=== PATIENT | male | born 1980 | race African-American/Black ===

== ENCOUNTER 2018-12-10 12:50 | Emergency (ER) | payer OTHER, SELFPAY ==
[2018-12-10 12:58] VITALS: BP 168/98; PULSE 89; RESP 20; O2SAT 99
[2018-12-10 13:19] LABS: Add Manual Diff / Slide Review NO; Basophils Absolute Auto 0 /uL (0-100); Basophils Percent Auto 0.3 % (0-2); Eosinophils Absolute Auto 100 /uL (0-450); Eosinophils Percent Auto 1.3 % (2-4); Hematocrit 43.9 % (41-53); Hemoglobin 14.9 g/dL (13.5-17.5); Lymphocytes Absolute Auto 1700 /uL (1100-4500); Mean Corpuscular Hemoglobin 30.1 PG (26-34); Mean Corpuscular Volume 88.7 fL (80-100); Monocytes Absolute Auto 700 /uL (0-900); Monocytes Percent Auto 9.4 % (3-14); Neutrophils Absolute Auto 5200 /uL (1500-7000); Platelet Count 252 X10^3/uL (150-400); Red Blood Cell Count 4.95 X10^6/uL (4.5-5.9); Red Cell Distribution Width 14.1 % (11.6-14.8); White Blood Cell Count 7.8 X10^3/uL (4.5-11.0)
[2018-12-10] MEDS: SODIUM CHLORIDE 0.9% 1,000 ML 1000 ML IV ×2 (13:20→14:22)
[2018-12-10] MEDS: ONDANSETRON 4 MG/2 ML INJ IV (13:20)
[2018-12-10 13:29] LABS: Alanine Aminotransferase 59 IU/L (21-72); Albumin 4.6 g/dL (3.5-5.0); Albumin Globulin Ratio 1.3 (1.0-2.8); Alkaline Phosphatase 89 U/L (38-126); Aspartate Aminotransferase 42 IU/L (17-59); BUN Creatinine Ratio 8.8 (6-22); Bilirubin Total 0.9 mg/dL (0.2-1.3); Blood Urea Nitrogen 15 mg/dL (9-20); Calcium 9.2 mg/dL (8.4-10.2); Carbon Dioxide 25 mmol/L (22-32); Chloride 104 mmol/L (98-107); Estimated Glomerular Filt Rate 45.3 mL/min (>60); Globulin 3.6 g/dL (1.7-4.1); Glucose 93 mg/dL (70-100); HEMOLYSIS < 15 (0-50); Lipase 69 U/L (23-300); Potassium 4.3 mmol/L (3.4-5.1); Sodium 140 mmol/L (137-145); Total Protein 8.2 g/dL (6.3-8.2)
[2018-12-10 14:00] VITALS: BP 135/75; PULSE 75; RESP 14; O2SAT 99
[2018-12-10 16:06] LABS: Bacteria Urine None Seen
[2018-12-10 16:19] LABS: Culture Indicated Urine Cult Not Indicated; RBC Urine 0-1/HPF (0-5/HPF); WBC Urine 0-1/HPF (0-5/HPF)
[2018-12-10] MEDS: DICYCLOMINE 10 MG CAPSULE PO (16:29)
[2018-12-10 16:56] VITALS: BP 132/74; PULSE 69; RESP 16; O2SAT 99
--- NOTE | 2018-12-11 02:07 | ED.ABDPAIN ---
HPI - Abdominal Pain <[facility] - Last Filed: 12/11/18 02:22> General Chief Complaint: Abdominal Pain Stated Complaint: stomach issues,not eating Time Seen by Provider: 12/10/18 13:19 Source: patient Mode of arrival: ambulatory Limitations: no limitations History of Present Illness HPI narrative: This is a pleasant 38-year-old gentleman, past smoker, presents to ED with frequent diarrhea for last 4 days without nausea or vomiting. Patient thought he had food poisoning after eating omelette on Thursday and his mother had similar symptoms for just 1 day. He reports nonbloody watery stool for about every 2 hours with mid abdominal discomfort. He denies fever but had some chills. Patient denies chest pain, breathing difficulty but has lightheaded with ambulation. He has been hydrating with water and sports drinks at home. Patient tried out eating solid food, pizza, last night and had recurring diarrhea. Patient reports his stomach was making loud noises and was concerned if he has bowel obstructions. Patient has a history of gallstone and cholecystectomy. He denies urinary symptoms. He takes omeprazole daily. Related Data Home Medications Medication Instructions Recorded Confirmed omeprazole 20 mg PO DAILY 12/10/18 12/10/18 Previous Rx's Medication Instructions Recorded dicyclomine 20 mg PO BID #10 cap 12/10/18 Allergies Allergy/AdvReac Type Severity Reaction Status Date / Time No Known Drug Allergies Allergy Verified 12/10/18 12:59 Review of Systems <[facility] - Last Filed: 12/11/18 02:22> Review of Systems General: See HPI HEENT: Denies sinus pain, ear pain, sore throat, difficulty swallowing, dizziness. Respiratory: Denies dyspnea, cough, wheezing, hemoptysis, sputum. Cardiovascular: Denies chest pain, palpitations, orthopnea, edema. Reports lightheadedness with ambulation. Gastrointestinal: See HPI : Denies dysuria, frequency, incontinence, hematuria, urinary retention. Musculoskeletal: Denies weakness, joint pain or bony pain. Skin: Denies rash, skin lesions, or other. Neurologic: Denies weakness, headache, numbness, change in speech, confusion, seizures, incoordination. Psychiatric: No concerning psychosocial issues. 12-point review of systems is negative except for those stated above. PFSH <PRASHANTH Herrera - Last Filed: 12/11/18 02:22> Surgical History (Updated 12/11/18 @ 02:12 by PRASHANTH Herrear) History of cholecystectomy (Chronic) Social History Smoking Status: Never smoker Social History Smoking Status: Never smoker Exam <PRASHANTH Herrera - Last Filed: 12/11/18 02:22> Narrative Exam Narrative: GEN: Alert, oriented x 3, well appearing and nourished, and in no acute distress. Head: Normal cephalic, atraumatic. No scalp or temporal tenderness, palpable mass or rash. EYES: Pupils are equal, round, and reactive to light and accommodation. Extraocular muscles are intact bilaterally. There is no subconjunctival hemorrhage, exudate and sclera non-icteric. ENT: Nose without bleeding, purulent discharge. Mucous membrane moist, no mucosal lesion. Throat without erythema, tonsillar hypertrophy or exudate. Uvula in midline, airway patent. Neck: Trachea in midline. No JVD, non-tender without lymphadenopathy. No masses or thyroid megaly. Supple, non-tender and no meningeal signs. CARDIAC: Normal regular rate and rhythm without murmurs, gallops, or rubs. No chest wall tenderness. No peripheral edema, cyanosis or pallor. Capillary refill is less than 2 seconds. RESPIRATORY: Lungs are cleat to auscultate bilaterally. No cough, wheezes, rales, or rhonchi. No stridor, respiratory distress, increase work of breathing, or accessary muscle used. ABD: Mild tenderness to palpate in epigastric region. Abdomen soft and non-distended. No guarding or rebound tenderness to palpate. Bowel sounds are normal in all 4 quadrants. There is no palpable masses or organomegaly. EXT: Full painless ROM of all extremities with no loss of sensation, strength, effusion or edema. SKIN: Warm, dry, normal color for patient. No erythema, lesions or rash over visible areas. BACK: Nontender without deformity or crepitance. No flank tenderness. NEUROLOGICAL: Alert and oriented to place, time and person. Sensation and motor function intact bilaterally. No facial droops, dysphasia. PSYCHIATRIC: Good judgement and reason, without hallucinations, abnormal affect or abnormal behaviors during the examination. Patient is not suicidal. Initial Vital Signs Initial Vital Signs: Vital Signs Pulse Rate 89 12/10/18 12:58 Respiratory Rate 20 12/10/18 12:58 Blood Pressure 168/98 H 12/10/18 12:58 Pulse Oximetry 99 12/10/18 12:58 <Karthik Madera DO - Last Filed: 12/11/18 07:35> Initial Vital Signs Initial Vital Signs: Vital Signs Pulse Rate 89 12/10/18 12:58 Respiratory Rate 20 12/10/18 12:58 Blood Pressure 168/98 H 12/10/18 12:58 Pulse Oximetry 99 12/10/18 12:58 Course <PRASHANTH Herrera - Last Filed: 12/11/18 02:22> Orders Ordered: Discontinued Medications Dicyclomine HCl (Bentyl) 10 mg PO NOW ONE Stop: 12/10/18 16:02 Last Admin: 12/10/18 16:29 Dose: 10 mg Sodium Chloride (Normal Saline 0.9%) 1,000 mls @ 1,000 mls/hr IV BOLUS ONE Stop: 12/10/18 14:04 Last Infusion: 12/10/18 14:22 Dose: 0 mls/hr Admin: 12/10/18 13:20 Dose: 1,000 mls/hr Sodium Chloride (Normal Saline 0.9%) 1,000 mls @ 1,000 mls/hr IV BOLUS ONE Stop: 12/10/18 15:14 Last Infusion: 12/10/18 15:41 Dose: 0 mls/hr Admin: 12/10/18 14:22 Dose: 1,000 mls/hr Ondansetron HCl (Zofran) 4 mg IV NOW ONE Stop: 12/10/18 13:06 Last Admin: 12/10/18 13:20 Dose: 4 mg <Karthik Madera DO - Last Filed: 12/11/18 07:35> Orders Ordered: Discontinued Medications Dicyclomine HCl (Bentyl) 10 mg PO NOW ONE Stop: 12/10/18 16:02 Last Admin: 12/10/18 16:29 Dose: 10 mg Sodium Chloride (Normal Saline 0.9%) 1,000 mls @ 1,000 mls/hr IV BOLUS ONE Stop: 12/10/18 14:04 Last Infusion: 12/10/18 14:22 Dose: 0 mls/hr Admin: 12/10/18 13:20 Dose: 1,000 mls/hr Sodium Chloride (Normal Saline 0.9%) 1,000 mls @ 1,000 mls/hr IV BOLUS ONE Stop: 12/10/18 15:14 Last Infusion: 12/10/18 15:41 Dose: 0 mls/hr Admin: 12/10/18 14:22 Dose: 1,000 mls/hr Ondansetron HCl (Zofran) 4 mg IV NOW ONE Stop: 12/10/18 13:06 Last Admin: 12/10/18 13:20 Dose: 4 mg MDM - Abdominal Pain <Rafi PRASHANTH Allen - Last Filed: 12/11/18 02:22> Differential Diagnosis Differential diagnosis: Likely abdominal pain, gastroenteritis and pancreatitis Medical Records Attestation: I reviewed the patient's medical records. Lab Data Attestation: I reviewed the patient's lab results. Result diagrams: 12/10/18 13:10 12/10/18 13:10 Lab Results 12/10/18 12/10/18 12/10/18 Range/Units 13:10 13:10 16:00 WBC 7.8 (4.5-11.0) X10^3/uL RBC 4.95 (4.5-5.9) X10^6/uL Hgb 14.9 (13.5-17.5) g/dL Hct 43.9 (41-53) % MCV 88.7 (80-100) fL MCH 30.1 (26-34) PG MCHC 34.0 (30-36) % RDW 14.1 (11.6-14.8) % Plt Count 252 (150-400) X10^3/uL Neut % (Auto) 67.0 (50-75) % Lymph % (Auto) 22.0 L (25-40) % [place] % (Auto) 9.4 (3-14) % Eos % (Auto) 1.3 L (2-4) % Baso % (Auto) 0.3 (0-2) % Neut # (Auto) 5200 (4745-7128) /uL Lymph # (Auto) 1700 (3979-8384) /uL [place] # (Auto) 700 (0-900) /uL Eos # (Auto) 100 (0-450) /uL Baso # (Auto) 0 (0-100) /uL Sodium 140 (137-145) mmol/L Potassium 4.3 (3.4-5.1) mmol/L Chloride 104 (98-107) mmol/L Carbon Dioxide 25 (22-32) mmol/L BUN 15 (9-20) mg/dL Creatinine 1.70 H (0.66-1.25) mg/dL Estimated GFR 45.3 L (>60) mL/min BUN/Creatinine Ratio 8.8 (6-22) Glucose 93 (70-100) mg/dL Calcium 9.2 (8.4-10.2) mg/dL Total Bilirubin 0.9 (0.2-1.3) mg/dL AST 42 (17-59) IU/L ALT 59 (21-72) IU/L Alkaline Phosphatase 89 (38-126) U/L Total Protein 8.2 (6.3-8.2) g/dL Albumin 4.6 (3.5-5.0) g/dL Globulin 3.6 (1.7-4.1) g/dL Albumin/Globulin Ratio 1.3 (1.0-2.8) Lipase 69 (23-300) U/L Urine RBC 0-1/hpf (0-5/HPF) Urine WBC 0-1/hpf (0-5/HPF) Urine Bacteria None seen (None) Ur Culture Indicated? Cult not indicated Point of care testing: Urine Dip Bedside Urine Glucose Negative Bedside Urine Bilirubin ++ 2 Bedside Urine Ketone - Negative Urine Specific Saxis 1.030 Bedside Urine Occult Blood - Negative Bedside Urine pH 6.0 Bedside Urine Protein +/- 15 Bedside Urine Urobilinogen +/- 1mg Bedside Urine Nitrite - Negative Bedside Urine Leukocytes - Negative Esterase MDM Narrative Medical decision making narrative: This is a pleasant 38-year-old gentleman with nonbloody, watery diarrhea for 4 days without nausea vomiting, or fever. He reports some chills with this. He denies any blood in his stool. He reports feeling dehydrated and reports lightheadedness with ambulation. Patient's blood test was unremarkable except elevated creatinine and decreased GFR which could be from dehydration. Patient's urine test does not indicate infection. Patient was hydrated with 2 liters of IV fluid of normal saline. Patient felt improved with IV hydration. Patient also medicated with Bentyl prior DC to home and provided prescription for home use. Return precautions were discussed with patient. Patient was also instructed to take [id number] Imodium if he choose to. No further questions were expressed and patient a agree with treatment plan. <Karthik Madera, DO - Last Filed: 12/11/18 07:35> Lab Data Lab Results 12/10/18 12/10/18 12/10/18 Range/Units 13:10 13:10 16:00 WBC 7.8 (4.5-11.0) X10^3/uL RBC 4.95 (4.5-5.9) X10^6/uL Hgb 14.9 (13.5-17.5) g/dL Hct 43.9 (41-53) % MCV 88.7 (80-100) fL MCH 30.1 (26-34) PG MCHC 34.0 (30-36) % RDW 14.1 (11.6-14.8) % Plt Count 252 (150-400) X10^3/uL Neut % (Auto) 67.0 (50-75) % Lymph % (Auto) 22.0 L (25-40) % [place] % (Auto) 9.4 (3-14) % Eos % (Auto) 1.3 L (2-4) % Baso % (Auto) 0.3 (0-2) % Neut # (Auto) 5200 (7001-8296) /uL Lymph # (Auto) 1700 (1098-6814) /uL [place] # (Auto) 700 (0-900) /uL Eos # (Auto) 100 (0-450) /uL Baso # (Auto) 0 (0-100) /uL Sodium 140 (137-145) mmol/L Potassium 4.3 (3.4-5.1) mmol/L Chloride 104 (98-107) mmol/L Carbon Dioxide 25 (22-32) mmol/L BUN 15 (9-20) mg/dL Creatinine 1.70 H (0.66-1.25) mg/dL Estimated GFR 45.3 L (>60) mL/min BUN/Creatinine Ratio 8.8 (6-22) Glucose 93 (70-100) mg/dL Calcium 9.2 (8.4-10.2) mg/dL Total Bilirubin 0.9 (0.2-1.3) mg/dL AST 42 (17-59) IU/L ALT 59 (21-72) IU/L Alkaline Phosphatase 89 (38-126) U/L Total Protein 8.2 (6.3-8.2) g/dL Albumin 4.6 (3.5-5.0) g/dL Globulin 3.6 (1.7-4.1) g/dL Albumin/Globulin Ratio 1.3 (1.0-2.8) Lipase 69 (23-300) U/L Urine RBC 0-1/hpf (0-5/HPF) Urine WBC 0-1/hpf (0-5/HPF) Urine Bacteria None seen (None) Ur Culture Indicated? Cult not indicated Point of care testing: Urine Dip Bedside Urine Glucose Negative Bedside Urine Bilirubin ++ 2 Bedside Urine Ketone - Negative Urine Specific Saxis 1.030 Bedside Urine Occult Blood - Negative Bedside Urine pH 6.0 Bedside Urine Protein +/- 15 Bedside Urine Urobilinogen +/- 1mg Bedside Urine Nitrite - Negative Bedside Urine Leukocytes - Negative Esterase Discharge Plan Departure Patient Disposition: Home Clinical Impression: Diarrhea Qualifiers: Diarrhea type: unspecified type Qualified Code(s): R19.7 - Diarrhea, unspecified Discharge Date/Time: 12/10/18 16:56 Interventions: ED Discharge Assessment Last Done: 12/10/18 16:56 Activity Restrictions/Additional Instructions: You have been diagnosed with [diarrhea and abdominal cramping pain. I have very low suspicion on bowel blockage since you had multiple diarrhea symptoms for last few days. There is no indication for infection for blood test. However, you are dehydrated her blood test. You're GFR and creatinine elevated. Please follow-up with your primary care physician next week to follow up on this. Please hydrate herself well with oral liquid in the meantime to replace her loss through diarrhea. ]. What to do: *Take your medications as directed. You're going home with Susanyl for stomach cramping pain. He could also take [id number] Imodium for diarrhea as needed. *Follow up with your primary care provider in 2-3 days, call for an appointment on Thursday morning. Let them know you were seen in the ED and that we asked you to be seen in follow up. *Return to ED if you have any new, worsening, or concerning symptoms, such as [fever, severe pain, unable to tolerate fluids, chest pain, breathing difficulty, dizziness, blood in her stool or any acute concerns]. Prescriptions: New dicyclomine 10 mg capsule 20 mg PO BID Qty: 10 RF: 0 No Action omeprazole 20 mg Capsule,Delayed Release(Dr/Ec) 20 mg PO DAILY RF: 0 Referrals: Dimitrios Ziegler MD [Primary Care Provider] - <Karthik Madera DO - Last Filed: 12/11/18 07:35> Cosign ED Attending Benitaature Attestation: I was available for consultation during this patient's emergency department encounter
--- NOTE | 2018-12-11 02:11 | ED_ITS ---
HPI - Abdominal Pain <[facility] - Last Filed: 12/11/18 02:22> General Chief Complaint: Abdominal Pain Stated Complaint: stomach issues,not eating Time Seen by Provider: 12/10/18 13:19 Source: patient Mode of arrival: ambulatory Limitations: no limitations History of Present Illness HPI narrative: This is a pleasant 38-year-old gentleman, past smoker, presents to ED with frequent diarrhea for last 4 days without nausea or vomiting. Patient thought he had food poisoning after eating omelette on Thursday and his mother had similar symptoms for just 1 day. He reports nonbloody watery stool for about every 2 hours with mid abdominal discomfort. He denies fever but had some chills. Patient denies chest pain, breathing difficulty but has lightheaded with ambulation. He has been hydrating with water and sports drinks at home. Patient tried out eating solid food, pizza, last night and had recurring diarrhea. Patient reports his stomach was making loud noises and was concerned if he has bowel obstructions. Patient has a history of gallstone and cholecystectomy. He denies urinary symptoms. He takes omeprazole daily. Related Data Home Medications Medication Instructions Recorded Confirmed omeprazole 20 mg PO DAILY 12/10/18 12/10/18 Previous Rx's Medication Instructions Recorded dicyclomine 20 mg PO BID #10 cap 12/10/18 Allergies Allergy/AdvReac Type Severity Reaction Status Date / Time No Known Drug Allergies Allergy Verified 12/10/18 12:59 Review of Systems <[facility] - Last Filed: 12/11/18 02:22> Review of Systems General: See HPI HEENT: Denies sinus pain, ear pain, sore throat, difficulty swallowing, di zziness. Respiratory: Denies dyspnea, cough, wheezing, hemoptysis, sputum. Cardiovascular: Denies chest pain, palpitations, orthopnea, edema. Reports lightheadedness with ambulation. Gastrointestinal: See HPI : Denies dysuria, frequency, incontinence, hematuria, urinary retention. Musculoskeletal: Denies weakness, joint pain or bony pain. Skin: Denies rash, skin lesions, or other. Neurologic: Denies weakness, headache, numbness, change in speech, confusion, seizures, incoordination. Psychiatric: No concerning psychosocial issues. 12-point review of systems is negative except for those stated above. PFSH <PRASHANTH Herrera - Last Filed: 12/11/18 02:22> Surgical History (Updated 12/11/18 @ 02:12 by PRASHANTH Herrera) History of cholecystectomy (Chronic) Social History Smoking Status: Never smoker Social History Smoking Status: Never smoker Exam <PRASHANTH Herrera - Last Filed: 12/11/18 02:22> Narrative Exam Narrative: GEN: Alert, oriented x 3, well appearing and nourished, and in no acute distress. Head: Normal cephalic, atraumatic. No scalp or temporal tenderness, palpable mass or rash. EYES: Pupils are equal, round, and reactive to light and accommodation. Extraocular muscles are intact bilaterally. There is no subconjunctival hemorrhage, exudate and sclera non-icteric. ENT: Nose without bleeding, purulent discharge. Mucous membrane moist, no mucosal lesion. Throat without erythema, tonsillar hypertrophy or exudate. Uvula in midline, airway patent. Neck: Trachea in midline. No JVD, non-tender without lymphadenopathy. No masses or thyroid megaly. Supple, non-tender and no meningeal signs. CARDIAC: Normal regular rate and rhythm without murmurs, gallops, or rubs. No chest wall tenderness. No peripheral edema, cyanosis or pallor. Capillary refill is less than 2 seconds. RESPIRATORY: Lungs are cleat to auscultate bilaterally. No cough, wheezes, rale s, or rhonchi. No stridor, respiratory distress, increase work of breathing, or accessary muscle used. ABD: Mild tenderness to palpate in epigastric region. Abdomen soft and non- distended. No guarding or rebound tenderness to palpate. Bowel sounds are normal in all 4 quadrants. There is no palpable masses or organomegaly. EXT: Full painless ROM of all extremities with no loss of sensation, strength, effusion or edema. SKIN: Warm, dry, normal color for patient. No erythema, lesions or rash over visible areas. BACK: Nontender without deformity or crepitance. No flank tenderness. NEUROLOGICAL: Alert and oriented to place, time and person. Sensation and motor function intact bilaterally. No facial droops, dysphasia. PSYCHIATRIC: Good judgement and reason, without hallucinations, abnormal affect or abnormal behaviors during the examination. Patient is not suicidal. Initial Vital Signs Initial Vital Signs: Vital Signs Pulse Rate 89 12/10/18 12:58 Respiratory Rate 20 12/10/18 12:58 Blood Pressure 168/98 H 12/10/18 12:58 Pulse Oximetry 99 12/10/18 12:58 <DO Tess Lamar Last Filed: 12/11/18 07:35> Initial Vital Signs Initial Vital Signs: Vital Signs Pulse Rate 89 12/10/18 12:58 Respiratory Rate 20 12/10/18 12:58 Blood Pressure 168/98 H 12/10/18 12:58 Pulse Oximetry 99 12/10/18 12:58 Course <PRASHANTH Herrera - Last Filed: 12/11/18 02:22> Orders Ordered: Discontinued Medications Dicyclomine HCl (Bentyl) 10 mg PO NOW ONE Stop: 12/10/18 16:02 Last Admin: 12/10/18 16:29 Dose: 10 mg Sodium Chloride (Normal Saline 0.9%) 1,000 mls @ 1,000 mls/hr IV BOLUS ONE Stop: 12/10/18 14:04 Last Infusion: 12/10/18 14:22 Dose: 0 mls/hr Admin: 12/10/18 13:20 Dose: 1,000 mls/hr Sodium Chloride (Normal Saline 0.9%) 1,000 mls @ 1,000 mls/hr IV BOLUS ONE Stop: 12/10/18 15:14 Last Infusion: 12/10/18 15:41 Dose: 0 mls/hr Admin: 12/10/18 14:22 Dose: 1,000 mls/hr Ondansetron HCl (Zofran) 4 mg IV NOW ONE Stop: 12/10/18 13:06 Last Admin: 12/10/18 13:20 Dose: 4 mg <DO Tess Lamar Last Filed: 12/11/18 07:35> Orders Ordered: Discontinued Medications Dicyclomine HCl (Bentyl) 10 mg PO NOW ONE Stop: 12/10/18 16:02 Last Admin: 08/16/19 16:29 Dose: 10 mg Sodium Chloride (Normal Saline 0.9%) 1,000 mls @ 1,000 mls/hr IV BOLUS ONE Stop: 12/10/18 14:04 Last Infusion: 12/10/18 14:22 Dose: 0 mls/hr Admin: 12/10/18 13:20 Dose: 1,000 mls/hr Sodium Chloride (Normal Saline 0.9%) 1,000 mls @ 1,000 mls/hr IV BOLUS ONE Stop: 12/10/18 15:14 Last Infusion: 12/10/18 15:41 Dose: 0 mls/hr Admin: 12/10/18 14:22 Dose: 1,000 mls/hr Ondansetron HCl (Zofran) 4 mg IV NOW ONE Stop: 12/10/18 13:06 Last Admin: 12/10/18 13:20 Dose: 4 mg MDM - Abdominal Pain <Rafi PRASHNATH Allen - Last Filed: 12/11/18 02:22> Differential Diagnosis Differential diagnosis: Likely abdominal pain, gastroenteritis and pancreatitis Medical Records Attestation: I reviewed the patient's medical records. Lab Data Attestation: I reviewed the patient's lab results. Result diagrams: 12/10/18 13:10 12/10/18 13:10 Lab Results 12/10/18 12/10/18 12/10/18 Range/Units 13:10 13:10 16:00 WBC 7.8 (4.5-11.0) X10^3/uL RBC 4.95 (4.5-5.9) X10^6/uL Hgb 14.9 (13.5-17.5) g/dL Hct 43.9 (41-53) % MCV 88.7 (80-100) fL MCH 30.1 (26-34) PG MCHC 34.0 (30-36) % RDW 14.1 (11.6-14.8) % Plt Count 252 (150-400) X10^3/uL Neut % (Auto) 67.0 (50-75) % Lymph % (Auto) 22.0 L (25-40) % [place] % (Auto) 9.4 (3-14) % Eos % (Auto) 1.3 L (2-4) % Baso % (Auto) 0.3 (0-2) % Neut # (Auto) 5200 (9946-9915) /uL Lymph # (Auto) 1700 (5174-8995) /uL [place] # (Auto) 700 (0-900) /uL Eos # (Auto) 100 (0-450) /uL Baso # (Auto) 0 (0-100) /uL Sodium 140 (137-145) mmol/L Potassium 4.3 (3.4-5.1) mmol/L Chloride 104 (98-107) mmol/L Carbon Dioxide 25 (22-32) mmol/L BUN 15 (9-20) mg/dL Creatinine 1.70 H (0.66-1.25) mg/dL Estimated GFR 45.3 L (>60) mL/min BUN/Creatinine Ratio 8.8 (6-22) Glucose 93 (70-100) mg/dL Calcium 9.2 (8.4-10.2) mg/dL Total Bilirubin 0.9 (0.2-1.3) mg/dL AST 42 (17-59) IU/L ALT 59 (21-72) IU/L Alkaline Phosphatase 89 (38-126) U/L Total Protein 8.2 (6.3-8.2) g/dL Albumin 4.6 (3.5-5.0) g/dL Globulin 3.6 (1.7-4.1) g/dL Albumin/Globulin Ratio 1.3 (1.0-2.8) Lipase 69 (23-300) U/L Urine RBC 0-1/hpf (0-5/HPF) Urine WBC 0-1/hpf (0-5/HPF) Urine Bacteria None seen (None) Ur Culture Indicated? Cult not indicated Point of care testing: Urine Dip Bedside Urine Glucose Negative Bedside Urine Bilirubin ++ 2 Bedside Urine Ketone - Negative Urine Specific [place] 1.030 Bedside Urine Occult Blood - Negative Bedside Urine pH 6.0 Bedside Urine Protein +/- 15 Bedside Urine Urobilinogen +/- 1mg Bedside Urine Nitrite - Negative Bedside Urine Leukocytes - Negative Esterase MDM Narrative Medical decision making narrative: This is a pleasant 38-year-old gentleman with nonbloody, watery diarrhea for 4 days without nausea vomiting, or fever. He reports some chills with this. He denies any blood in his stool. He reports feeling dehydrated and reports lightheadedness with ambulation. Patient's blood test was unremarkable except elevated creatinine and decreased GFR which could be from dehydration. Patient's urine test does not indicate infection. Patient was hydrated with 2 liters of IV fluid of normal saline. Patient felt improved with IV hydration. Patient also medicated with Bentyl prior DC to home and provided prescription for home use. Return precautions were discussed with patient. Patient was also instructed to take [id number] Imodium if he cho ose to. No further questions were expressed and patient a agree with treatment plan. <Karthik Madera, DO - Last Filed: 12/11/18 07:35> Lab Data Lab Results 12/10/18 12/10/18 12/10/18 Range/Units 13:10 13:10 16:00 WBC 7.8 (4.5-11.0) X10^3/uL RBC 4.95 (4.5-5.9) X10^6/uL Hgb 14.9 (13.5-17.5) g/dL Hct 43.9 (41-53) % MCV 88.7 (80-100) fL MCH 30.1 (26-34) PG MCHC 34.0 (30-36) % RDW 14.1 (11.6-14.8) % Plt Count 252 (150-400) X10^3/uL Neut % (Auto) 67.0 (50-75) % Lymph % (Auto) 22.0 L (25-40) % [place] % (Auto) 9.4 (3-14) % Eos % (Auto) 1.3 L (2-4) % Baso % (Auto) 0.3 (0-2) % Neut # (Auto) 5200 (7987-4217) /uL Lymph # (Auto) 1700 (2737-1599) /uL [place] # (Auto) 700 (0-900) /uL Eos # (Auto) 100 (0-450) /uL Baso # (Auto) 0 (0-100) /uL Sodium 140 (137-145) mmol/L Potassium 4.3 (3.4-5.1) mmol/L Chloride 104 (98-107) mmol/L Carbon Dioxide 25 (22-32) mmol/L BUN 15 (9-20) mg/dL Creatinine 1.70 H (0.66-1.25) mg/dL Estimated GFR 45.3 L (>60) mL/min BUN/Creatinine Ratio 8.8 (6-22) Glucose 93 (70-100) mg/dL Calcium 9.2 (8.4-10.2) mg/dL Total Bilirubin 0.9 (0.2-1.3) mg/dL AST 42 (17-59) IU/L ALT 59 (21-72) IU/L Alkaline Phosphatase 89 (38-126) U/L Total Protein 8.2 (6.3-8.2) g/dL Albumin 4.6 (3.5-5.0) g/dL Globulin 3.6 (1.7-4.1) g/dL Albumin/Globulin Ratio 1.3 (1.0-2.8) Lipase 69 (23-300) U/L Urine RBC 0-1/hpf (0-5/HPF) Urine WBC 0-1/hpf (0-5/HPF) Urine Bacteria None seen (None) Ur Culture Indicated? Cult not indicated Point of care testing: Urine Dip Bedside Urine Glucose Negative Bedside Urine Bilirubin ++ 2 Bedside Urine Ketone - Negative Urine Specific [place] 1.030 Bedside Urine Occult Blood - Negative Bedside Urine pH 6.0 Bedside Urine Protein +/- 15 Bedside Urine Urobilinogen +/- 1mg Bedside Urine Nitrite - Negative Bedside Urine Leukocytes - Negative Esterase Discharge Plan Departure Patient Disposition: Home Clinical Impression: Diarrhea Qualifiers: Diarrhea type: unspecified type Qualified Code(s): R19.7 - Diarrhea, unspecified Discharge Date/Time: 12/10/18 16:56 Interventions: ED Discharge Assessment Last Done: 12/10/18 16:56 Activity Restrictions/Additional Instructions: You have been diagnosed with [diarrhea and abdominal cramping pain. I have very low suspicion on bowel blockage since you had multiple diarrhea symptoms for last few days. There is no indication for infection for blood test. However, you are dehydrated her blood test. You're GFR and creatinine elevated. Please follow-up with your primary care physician next week to follow up on this. Please hydrate herself well with oral liquid in the meantime to replace her loss through diarrhea. ]. What to do: *Take your medications as directed. You're going home with Bernadette for stomach cramping pain. He could also take [id number] Imodium for diarrhea as needed. *Follow up with your primary care provider in 2-3 days, call for an appointment on Thursday morning. Let them know you were seen in the ED and that we asked you to be seen in follow up. *Return to ED if you have any new, worsening, or concerning symptoms, such as [fever, severe pain, unable to tolerate fluids, chest pain, breathing difficulty, dizziness, blood in her stool or any acute concerns]. Prescriptions: New dicyclomine 10 mg capsule 20 mg PO BID Qty: 10 RF: 0 No Action omeprazole 20 mg Capsule,Delayed Release(Dr/Ec) 20 mg PO DAILY RF: 0 Referrals: Dimitrios Ziegler MD [Primary Care Provider] - <Karthik Madera DO - Last Filed: 12/11/18 07:35> Cosign ED Attending Benitaature Attestation: I was available for consultation during this patient's emergency department encounter
== END 2018-12-10 16:56 | disposition home or self-care (01) ==
PROVIDERS: Emergency Medicine; Emergency Provider Nurse Practitioner Family; Family Provider Family Medicine; PCP Family Medicine
DX: R19.7 Diarrhea, unspecified (principal)
CPT/HCPCS: 36591; 80053; 81003; 81015; 83690; 85025; 96361; 96374; 99283; 99284; J2405

== ENCOUNTER → 2018-12-15 11:48 | Outpatient (CLI) | payer OTHER, SELFPAY ==
[2018-12-15 13:40] LABS: BUN Creatinine Ratio 7.5 (6-22); Blood Urea Nitrogen 12 mg/dL (9-20); Calcium 9.3 mg/dL (8.4-10.2); Carbon Dioxide 29 mmol/L (22-32); Chloride 103 mmol/L (98-107); Estimated Glomerular Filt Rate 48.6 mL/min (>60); Glucose 89 mg/dL (70-100); HEMOLYSIS < 15 (0-50); Potassium 4.6 mmol/L (3.4-5.1); Sodium 142 mmol/L (137-145)
== END ==
PROVIDERS: Family Provider Family Medicine; PCP Family Medicine; Visit Provider Hospitalist
DX: R19.7 Diarrhea, unspecified (principal)
CPT/HCPCS: 36415; 80048

== ENCOUNTER → 2018-12-20 10:57 | Outpatient (CLI) | payer OTHER, SELFPAY ==
[2018-12-20 12:14] LABS: Appearance Urine UA CLEAR; Bilirubin Urine UA NEGATIVE (NEGATIVE); Color Urine UA YELLOW; Glucose Urine UA NEGATIVE (Negative); Ketones Urine UA NEGATIVE (NEGATIVE); Leukocyte Esterase Urine UA NEGATIVE (NEGATIVE); Nitrite Urine UA NEGATIVE (Negative); Occult Blood Urine UA NEGATIVE (Negative); Protein Urine UA NEGATIVE (Negative); Urobilinogen Urine UA 0.2 E.U./dL (0.2); pH Urine UA 5.5 (4.5-8.0)
[2018-12-20 12:23] LABS: Blood Urea Nitrogen 14 mg/dL (9-20); Calcium 9.6 mg/dL (8.4-10.2); Carbon Dioxide 31 mmol/L (22-32); Chloride 102 mmol/L (98-107); Estimated Glomerular Filt Rate 56.7 mL/min (>60); Glucose 102 mg/dL (70-100); HEMOLYSIS < 15 (0-50); Potassium 4.7 mmol/L (3.4-5.1); Sodium 140 mmol/L (137-145)
== END ==
PROVIDERS: PCP Family Medicine; Visit Provider Hospitalist
DX: K52.9 Noninfective gastroenteritis and colitis, unspecified (principal); R79.89 Other specified abnormal findings of blood chemistry
CPT/HCPCS: 36415; 80048; 81003

== ENCOUNTER → 2018-12-24 14:01 | Outpatient (CLI) | payer OTHER, SELFPAY ==
--- NOTE | 2018-12-24 14:03 | DI.US.S_ITS ---
PROCEDURE: US RENAL COMPLETE INDICATIONS: ELEVATED CREATININE TECHNIQUE: Real-time scanning was performed of the kidneys and bladder, with image documentation. COMPARISON: [facility], CT, ABDOMEN/PELVIS WITH CONTRAST, 03/13/2016, 14:20. [facility], US, ABDOMEN COMPLETE, 11/29/2013, 13:37. FINDINGS: Kidneys: Kidneys are normal in size. Right kidney measures 11.4 cm long; left kidney measures 10.6 cm long. Right renal cortical thickness is 1.8 cm; left renal cortical thickness is 1.9 cm. Renal cortical echotexture is normal. No hydronephrosis or nephrolithiasis. No suspicious solid mass lesions. Bladder: Pre-void bladder volume is 232 mL. Post-void residual is 32 mL. Pre-void images demonstrate no intraluminal masses or stones. On pre-void images, bilateral ureteral jets are noted with color Doppler interrogation. (Of note, ureteral jets may not be detectable in up to 25% of cases due to insufficient differences in specific gravity between ureteral and bladder urine). Miscellaneous: No free pelvic fluid. IMPRESSION: Normal sonographic appearance of the kidneys. Dictated by: Arley MARTINES Interpreted: Susie Pop MD on 12/24/2018 at 15:01 Approved by: Susie Pop M.D. on 12/24/2018 at 15:12
== END ==
PROVIDERS: PCP Family Medicine; Visit Provider Hospitalist
DX: R79.89 Other specified abnormal findings of blood chemistry (principal); R94.4 Abnormal results of kidney function studies
CPT/HCPCS: 76770

== ENCOUNTER → 2019-11-03 15:21 | Outpatient (CLI) | payer OTHER, SELFPAY ==
--- NOTE | 2019-11-03 15:25 | DI.RAD.S_ITS ---
PROCEDURE: XR CHEST 2V INDICATIONS: Chest pain TECHNIQUE: 2 views of the chest were acquired. COMPARISON: None. FINDINGS: Surgical changes and devices: None. Lungs and pleura: Lungs are clear. No pleural effusions or pneumothorax. Mediastinum: Mediastinal contours are normal. Heart size is normal. Bones and chest wall: No suspicious bony abnormalities. Soft tissues appear unremarkable. IMPRESSION: No acute cardiopulmonary process demonstrated radiographically. Dictated by: Seng Soliz M.D. on 11/03/2019 at 16:03 Approved by: Seng Soliz M.D. on 11/03/2019 at 16:04
[2019-11-03 16:14] LABS: Add Manual Diff / Slide Review NO; Basophils Absolute Auto 0 /uL (0-100); Basophils Percent Auto 0.3 % (0-2); Eosinophils Absolute Auto 100 /uL (0-450); Eosinophils Percent Auto 1.4 % (2-4); Hematocrit 41.8 % (41-53); Hemoglobin 14.1 g/dL (13.5-17.5); Lymphocytes Absolute Auto 2800 /uL (1100-4500); Lymphocytes Percent Auto 37.6 % (25-40); Mean Corpuscular HGB Conc 33.6 % (30-36); Mean Corpuscular Hemoglobin 30.2 PG (26-34); Mean Corpuscular Volume 89.8 fL (80-100); Monocytes Absolute Auto 500 /uL (0-900); Monocytes Percent Auto 6.2 % (3-14); Neutrophils Absolute Auto 4100 /uL (1500-7000); Neutrophils Percent Auto 54.5 % (50-75); Platelet Count 254 X10^3/uL (150-400); Red Blood Cell Count 4.66 X10^6/uL (4.5-5.9); Red Cell Distribution Width 13.7 % (11.6-14.8); White Blood Cell Count 7.5 X10^3/uL (4.5-11.0)
[2019-11-03 16:42] LABS: Alanine Aminotransferase 56 IU/L (<50); Albumin 4.4 g/dL (3.5-5.0); Albumin Globulin Ratio 1.3 (1.0-2.8); Alkaline Phosphatase 81 U/L (38-126); Amylase 93 U/L (30-110); Aspartate Aminotransferase 47 IU/L (17-59); BUN Creatinine Ratio 9.6 (6-22); Bilirubin Total 0.6 mg/dL (0.2-1.3); Blood Urea Nitrogen 15 mg/dL (9-20); Calcium 9.5 mg/dL (8.4-10.2); Carbon Dioxide 28 mmol/L (22-32); Chloride 104 mmol/L (98-107); Creatine Kinase 651 U/L (55-170); Estimated Glomerular Filt Rate 49.4 mL/min (>60); Globulin 3.3 g/dL (1.7-4.1); Glucose 93 mg/dL (70-100); HEMOLYSIS < 15 (0-50); Lipase 66 U/L (23-300); Potassium 4.1 mmol/L (3.4-5.1); Sodium 138 mmol/L (137-145); Total Protein 7.7 g/dL (6.3-8.2)
[2019-11-03 16:46] LABS: Microalbumin Urine Random 1.5 mg/dL (0-1.6)
[2019-11-03 16:49] LABS: Troponin I < 0.012 ng/mL (0.01-0.034)
[2019-11-03 16:57] LABS: CKMB % Relative Index 0.5 % (1.5-5.0); Creatine Kinase MB 3.29 ng/mL (<2.37)
[2019-11-03 16:59] LABS: Creatinine Urine Random 350.3 mg/dL; Microalbumi Creatinin Ratio Ur 4.2 ug/mg CR (<30)
[2019-11-03 17:32] LABS: Thyroid Stimulating Hormone 1.92 uIU/mL (0.47-4.68)
[2019-11-04 11:28] LABS: C-Reactive Protein Quant 0.6 mg/dL (<1.0)
== END ==
PROVIDERS: PCP Family Medicine; Referring Provider Family Medicine; Visit Provider Family Medicine
DX: R07.9 Chest pain, unspecified (principal); K21.9 Gastro-esophageal reflux disease without esophagitis; M54.9 Dorsalgia, unspecified; R10.9 Unspecified abdominal pain
CPT/HCPCS: 36415; 71046; 80053; 82043; 82150; 82550; 82553; 82570; 83690; 84443; 84484; 85025; 86140

== ENCOUNTER → 2019-11-04 09:08 | Outpatient (CLI) | payer OTHER, SELFPAY | PROVIDERS: PCP Family Medicine; Referring Provider Family Medicine; Visit Provider Family Medicine | DX: R07.9 Chest pain, unspecified (principal) | CPT/HCPCS: 93005; 93010 ==

== ENCOUNTER → 2019-11-14 14:46 | Outpatient (CLI) | payer OTHER, SELFPAY ==
[2019-11-16 06:50] LABS: COVID19 Sendout Not Detected (Not Detect)
== END ==
PROVIDERS: PCP Family Medicine; Visit Provider Nurse Practitioner
DX: Z01.812 Encounter for preprocedural laboratory examination (principal)
CPT/HCPCS: 87635

== ENCOUNTER → 2019-11-14 15:04 | Outpatient (CLI) | payer OTHER, SELFPAY ==
--- NOTE | 2019-11-14 15:18 | DI.RAD.S_ITS ---
PROCEDURE: XR CHEST 2V INDICATIONS: chest pain TECHNIQUE: 2 views of the chest were acquired. COMPARISON: [facility], CR, XR CHEST 2V, 11/03/2019, 15:17. FINDINGS: Surgical changes and devices: None. Lungs and pleura: Lungs are clear. No pleural effusions or pneumothorax. Mediastinum: Mediastinal contours are normal. Heart size is normal. Bones and chest wall: No suspicious bony abnormalities. Soft tissues appear unremarkable. IMPRESSION: Normal for age, source of current chest pain symptoms is not seen. Dictated by: Rodrick John M.D. on 11/14/2019 at 15:52 Approved by: Rodrick John M.D. on 11/14/2019 at 15:52
== END ==
PROVIDERS: PCP Family Medicine; Referring Provider Family Medicine; Visit Provider Family Medicine
DX: Z01.812 Encounter for preprocedural laboratory examination (principal); R07.89 Other chest pain
CPT/HCPCS: 71046; 87635

== ENCOUNTER → 2019-11-17 07:05 | Outpatient (CLI) | payer OTHER, SELFPAY ==
--- NOTE | 2019-11-17 08:15 | P.PCN_ITS ---
Cardiac Stress Test Report Referral & Results Date Patient Seen: 11/17/19 Time Patient Seen: 08:00 Requesting provider: Dimitrios Ziegler Indication: Chest pain at rest Rest ECG: Normal sinus rhythm Procedure Note: Today following both written and verbal informed consent, the patient was exercised according to a standard Fausto protocol. The patient e xercised for a total of 8 minutes 30 seconds achieving a maximum heart rate of 171. Patient's maximum systolic blood pressure was 220. This was an estimated 10.1 METs. Exaggerated hemodynamic response to exercise. Hypertensive at rest. Slow recovery at rest. Impaired exercise capacity (ANGELA +30% on active scale, +20% on sedentary scale). Complained of left chest discomfort during exercise. However, said that that symptom was nothing like his presenting problem. No other signs or symptoms of angina. No change in rhythm. Greater than [address] deviations in leads 2, 3, AVR. Impression: High probability for ischemia. Clinical correlation recommended. Consider repeating as Cardiolite or referring directly to Cardiology for catheterization. Please note: Actual ECG tracings can be found in the PACS system.
== END ==
PROVIDERS: PCP Family Medicine; Referring Provider Family Medicine; Visit Provider Family Medicine
DX: R07.89 Other chest pain (principal)
CPT/HCPCS: 36415; 80061; 82550; 93016; 93017; 93018

== ENCOUNTER → 2019-11-17 08:20 | Outpatient (CLI) | payer OTHER, SELFPAY ==
[2019-11-17 10:27] LABS: Cholesterol 230 mg/dL (140-199); Creatine Kinase 810 U/L (55-170); HDL Cholesterol 44 mg/dL (40-60); LDL Cholesterol Calculated 144 mg/dL (<100); Triglycerides 212 mg/dL (35-150)
== END ==
PROVIDERS: PCP Family Medicine; Referring Provider Family Medicine; Visit Provider Family Medicine
DX: R07.9 Chest pain, unspecified (principal)
CPT/HCPCS: 36415; 80061; 82550

== ENCOUNTER → 2019-11-28 10:40 | Outpatient (CLI) | payer OTHER, SELFPAY ==
[2019-11-28 11:29] LABS: Erythrocyte Sedimentation Rate 6 MM/HR (0-15)
[2019-11-28 11:35] LABS: Creatine Kinase 715 U/L (55-170)
[2019-11-28 11:37] LABS: C-Reactive Protein Quant < 0.5 mg/dL (<1.0)
[2019-11-28 11:47] LABS: CKMB % Relative Index 0.6 % (1.5-5.0); Creatine Kinase MB 4.09 ng/mL (<2.37)
[2019-11-30 00:07] LABS: Aldolase 7.4 U/L (3.3-10.3)
== END ==
PROVIDERS: PCP Family Medicine; Referring Provider Family Medicine; Visit Provider Family Medicine
DX: R74.8 Abnormal levels of other serum enzymes (principal)
CPT/HCPCS: 36415; 82085; 82550; 82553; 85651; 86140

== ENCOUNTER → 2023-07-30 10:51 | Outpatient (CLI) | payer OTHER, SELFPAY ==
[2023-07-30 11:54] LABS: Add Manual Diff / Slide Review NO; Basophils Absolute Auto 0 /uL (0-100); Basophils Percent Auto 0.5 % (0-2); Eosinophils Absolute Auto 100 /uL (0-450); Eosinophils Percent Auto 1.6 % (2-4); Hematocrit 44.3 % (41-53); Lymphocytes Absolute Auto 2400 /uL (1100-4500); Lymphocytes Percent Auto 34.4 % (25-40); Mean Corpuscular HGB Conc 33.9 % (30-36); Mean Corpuscular Hemoglobin 31.1 PG (26-34); Mean Corpuscular Volume 91.6 fL (80-100); Monocytes Absolute Auto 400 /uL (0-900); Monocytes Percent Auto 5.1 % (3-14); Neutrophils Absolute Auto 4100 /uL (1500-7000); Neutrophils Percent Auto 58.4 % (50-75); Platelet Count 266 X10^3/uL (150-400); Red Blood Cell Count 4.83 X10^6/uL (4.5-5.9); Red Cell Distribution Width 13.8 % (11.6-14.8); White Blood Cell Count 7.1 X10^3/uL (4.5-11.0)
[2023-07-30 12:40] LABS: Alanine Aminotransferase 27 IU/L (<50); Albumin 4.3 g/dL (3.5-5.0); Albumin Globulin Ratio 1.2 (1.0-2.8); Alkaline Phosphatase 82 U/L (38-126); Aspartate Aminotransferase 33 IU/L (17-59); BUN Creatinine Ratio 9.9 (6-22); Bilirubin Total 0.6 mg/dL (0.2-1.3); Blood Urea Nitrogen 16 mg/dL (9-20); Calcium 9.6 mg/dL (8.4-10.2); Carbon Dioxide 31 mmol/L (22-32); Chloride 104 mmol/L (98-107); Cholesterol 235 mg/dL (140-199); Estimated Glomerular Filt Rate 54 mL/min (>60); Globulin 3.6 g/dL (1.7-4.1); Glucose 102 mg/dL (70-100); HDL Cholesterol 48 mg/dL (40-60); HEMOLYSIS < 15 (0-50); LDL Cholesterol Calculated 170 mg/dL (<100); Potassium 4.4 mmol/L (3.4-5.1); Sodium 141 mmol/L (137-145); Total Protein 7.9 g/dL (6.3-8.2); Triglycerides 86 mg/dL (35-150)
[2023-07-30 18:17] LABS: HIV 1 & 2 Ab/Ag 4th Gen Combo NEGATIVE (NEGATIVE); Hep C Virus Ab w/Reflex Quant NEGATIVE s/c (NEGATIVE)
== END ==
PROVIDERS: PCP Family Medicine; Referring Provider Family Medicine; Visit Provider Family Medicine
DX: D64.9 Anemia, unspecified (principal); E78.5 Hyperlipidemia, unspecified; E87.8 Other disorders of electrolyte and fluid balance, not elsewhere classified; R73.9 Hyperglycemia, unspecified
CPT/HCPCS: 36415; 80053; 80061; 85025; 86803; 87389

== ENCOUNTER → 2023-08-13 16:01 | Outpatient (CLI) | payer OTHER, SELFPAY ==
--- NOTE | 2023-08-13 16:02 | DI.US.S_ITS ---
PROCEDURE: US SCROTUM INDICATIONS: Eval of possible mass. History of vasectomy 6 years ago. TECHNIQUE: Real-time scanning was performed of the scrotum and testicles, with image documentation. Color and pulse Doppler interrogation was performed of both testicles. COMPARISON: None. FINDINGS: Right: Testicle is normal in size at 4.6 x 3.1 x 2.2 cm, and homogenous in echotexture. Epididymis is normal in overall size and morphology. No hydrocele or varicoceles. Overlying scrotal skin is normal in thickness. Left: Testicle is normal in size at 4.7 x 3.1 x 2.0 cm, and homogeneous in echotexture. Epididymis is enlarged. There is a 1.0 x 1.0 x 0.9 cm focal area of heterogeneous hypoechogenicity in the inferior aspect of the epididymis, demonstrating increased vascularity. No hydrocele or varicoceles. Left scrotal wall is mildly thickened compared to the right scrotal wall. Doppler: Color and pulse Doppler demonstrate normal and symmetric arterial flow in both testicles. Other: Note is made of a small fat containing left inguinal hernia. IMPRESSION: 1. A 1.0 x 1.0 x 0.9 cm focal area of heterogeneous hypoechogenicity in the inferior aspect of the epididymis, demonstrating increased vascularity. The ultrasound finding is most likely secondary to focal epididymitis. A differential diagnosis is an epididymal mass. Recommend clinical correlation. A short-term follow-up ultrasound is recommended. 2. Mild left scrotal wall thickening, which is nonspecific. 3. Small left inguinal hernia. Dictated by: Anibal Pfeiffer M.D. on 08/14/2023 at 10:44 Approved by: Anibal Pfeiffer M.D. on 08/14/2023 at 10:55
== END ==
PROVIDERS: PCP Family Medicine; Referring Provider Family Medicine; Visit Provider Family Medicine
DX: N50.89 Other specified disorders of the male genital organs (principal); K40.90 Unilateral inguinal hernia, without obstruction or gangrene, not specified as recurrent
CPT/HCPCS: 76870

== ENCOUNTER → 2023-09-04 09:30 | Outpatient (CLI) | payer OTHER, SELFPAY ==
--- NOTE | 2023-09-04 09:31 | DI.RAD.S_ITS ---
PROCEDURE: XR LUMBAR SPINE 2-3V INDICATIONS: Back Pain TECHNIQUE: 3 views of the lumbar spine were acquired. COMPARISON: [facility], , -SPINE 2-3 VIEWS, 12/11/2014, 16:41. FINDINGS: Bones: 5 [id number]-[id number]-[id number] vertebrae are present. There is normal bony alignment. No vertebral body compression fractures. No suspicious bony lesions. Soft tissues: Overlying bowel gas pattern is normal. No suspicious soft tissue calcifications. IMPRESSION: No acute bony abnormality. Dictated by: Susie Pop M.D. on 09/04/2023 at 15:56 Approved by: Susie Pop M.D. on 09/04/2023 at 15:57
--- NOTE | 2023-09-04 09:31 | DI.RAD.S_ITS ---
PROCEDURE: XR KNEE LT 3V INDICATIONS: Left Knee Pain TECHNIQUE: 3 views of the knee were acquired. COMPARISON: None. FINDINGS: Bones: No fractures or dislocations. No suspicious bony lesions. Soft tissues: Moderate joint effusion. No suspicious soft tissue calcifications. IMPRESSION: Moderate effusion. No visualized acute fracture or dislocation. However, if clinical concern and/or pain persist, short interval imaging followup in 7-10 days is recommended, as occult injury cannot be definitively excluded. Dictated by: Susie Pop M.D. on 09/04/2023 at 15:58 Approved by: Susie Pop M.D. on 09/04/2023 at 15:58
--- NOTE | 2023-09-04 09:31 | DI.RAD.S_ITS ---
PROCEDURE: XR HIP W PEL IF DONE LT 2V INDICATIONS: Hip Pain TECHNIQUE: AP pelvis with lateral view(s) of the left hip(s). COMPARISON: [facility] Arcos, XR PELVIS WITH LATERAL HIP LEFT, 02/12/2023, 14:26. FINDINGS: Bones: No fractures or dislocations. Pelvic ring appears intact. No suspicious bony lesions. Qtvm-[id number]-[id number] left hip degenerative narrowing. No erosions. Soft tissues: The visualized bowel gas pattern is normal. No suspicious soft tissue calcifications. 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 Dictated by: Susie Pop M.D. on 09/04/2023 at 15:57 Approved by: Susie Pop M.D. on 09/04/2023 at 15:57
[2023-09-04 11:31] LABS: BUN Creatinine Ratio 8.4 (6-22); Blood Urea Nitrogen 14 mg/dL (9-20); Calcium 9.4 mg/dL (8.4-10.2); Carbon Dioxide 27 mmol/L (22-32); Chloride 106 mmol/L (98-107); Estimated Glomerular Filt Rate 52 mL/min (>60); Glucose 98 mg/dL (70-100); HEMOLYSIS < 15 (0-50); Potassium 4.3 mmol/L (3.4-5.1); Sodium 140 mmol/L (137-145)
== END ==
PROVIDERS: PCP Family Medicine; Referring Provider Family Medicine; Visit Provider Family Medicine
DX: M54.42 Lumbago with sciatica, left side (principal); G89.29 Other chronic pain; M25.552 Pain in left hip; M25.562 Pain in left knee; I10 Essential (primary) hypertension; R79.89 Other specified abnormal findings of blood chemistry; M25.462 Effusion, left knee
CPT/HCPCS: 36415; 72100; 73502; 73562; 80048

== ENCOUNTER → 2023-10-16 14:11 | Outpatient (CLI) | payer OTHER, SELFPAY ==
--- NOTE | 2023-10-16 14:13 | DI.RAD.S_ITS ---
PROCEDURE: XR KNEE LT 3V INDICATIONS: Chronic L knee pain, joint effusion TECHNIQUE: 3 views of the knee were acquired. COMPARISON: [facility], CR, XR KNEE LT 3V, 09/04/2023, 9:56. FINDINGS: Bones: Mild degenerative changes in the patellofemoral medial compartments. No acute displaced fracture or dislocation. Soft tissues: Possible joint effusion. IMPRESSION: Mild degenerative changes. If there is high concern for further derangement, consider MRI evaluation. Possible joint effusion. Dictated by: Josiah Pitts M.D. on 10/16/2023 at 16:14 Approved by: Josiah Pitts M.D. on 10/16/2023 at 16:15
[2023-10-16 15:42] LABS: Microalbumin Urine Random 0.9 mg/dL (0-1.6)
[2023-10-16 15:59] LABS: Creatinine Urine Random 470.89 mg/dL
== END ==
PROVIDERS: PCP Family Medicine; Referring Provider Family Medicine; Visit Provider Family Medicine
DX: M25.562 Pain in left knee (principal); I10 Essential (primary) hypertension; G89.29 Other chronic pain
CPT/HCPCS: 73562; 82043; 82570

== ENCOUNTER → 2023-10-30 07:29 | Outpatient (CLI) | payer OTHER, SELFPAY ==
--- NOTE | 2023-10-30 07:30 | DI.US.S_ITS ---
PROCEDURE: US SCROTUM INDICATIONS: eval possible epididymities vs epididymal mass seen on 08/12 TECHNIQUE: Real-time scanning was performed of the scrotum and testicles, with image documentation. Color and pulse Doppler interrogation was performed of both testicles. COMPARISON: [facility], US, US SCROTUM, 08/13/2023, 16:15. FINDINGS: Right: Testicle is normal in size at 4.5 x 1.6 x 2.9 cm, and homogenous in echotexture. Epididymis is normal in overall size and morphology. No hydrocele or varicoceles. Overlying scrotal skin is normal in thickness. Left: Testicle is normal in size at 4.1 x 1.9 x 3.3 cm, and homogeneous in echotexture. Epididymis is normal in overall size and morphology. Hypoechoic region with internal echogenicity in the left epididymis measuring 9 x 9 mm, unchanged from prior. No hydrocele or varicoceles. Overlying scrotal skin is normal in thickness. Doppler: Color and pulse Doppler demonstrate normal and symmetric arterial flow in both testicles. IMPRESSION: Unchanged hypoechoic region within the left epididymis measuring 9 x 9 mm. Location and findings favor a spermatocele. Consider additional follow-up in 6 months. Dictated by: Alexey Holt M.D. on 10/30/2023 at 8:39 Approved by: Alexey Holt M.D. on 10/30/2023 at 8:41
== END ==
LOC: US 07:30
PROVIDERS: PCP Family Medicine; Referring Provider Family Medicine; Visit Provider Family Medicine
DX: N50.89 Other specified disorders of the male genital organs (principal)
CPT/HCPCS: 76870

== ENCOUNTER → 2024-02-04 13:40 | Outpatient (CLI) | payer OTHER, SELFPAY ==
--- NOTE | 2024-02-04 13:44 | EKG_ITS ---
[place] [id number] [place] [id number] Test Date: 2024-02-04 Pat Name: Jarocho Malcolm Department: [facility] Room: Gender: Male [employer]: TUSHAR : 1980 Requested By: Order Number: [id number] Reading MD: Measurements Intervals [place] Rate: 62 P: 48 [place]: 150 QRS: 29 QRSD: 86 T: 22 QT: 388 QTc: 393 Interpretive Statements Normal sinus rhythm Nonspecific T wave abnormality Electronically Signed On 02-05-2024 7:31:50 PDT by Juan Meek MD
[2024-02-04 14:30] LABS: Add Manual Diff / Slide Review NO; Basophils Absolute Auto 0 /uL (0-100); Basophils Percent Auto 0.4 % (0-2); Eosinophils Absolute Auto 100 /uL (0-450); Eosinophils Percent Auto 1.2 % (2-4); Hematocrit 43.1 % (41-53); Hemoglobin 14.8 g/dL (13.5-17.5); Lymphocytes Absolute Auto 2100 /uL (1100-4500); Lymphocytes Percent Auto 35.2 % (25-40); Mean Corpuscular HGB Conc 34.2 % (30-36); Mean Corpuscular Hemoglobin 31.5 PG (26-34); Mean Corpuscular Volume 91.8 fL (80-100); Monocytes Absolute Auto 400 /uL (0-900); Monocytes Percent Auto 6.1 % (3-14); Neutrophils Absolute Auto 3500 /uL (1500-7000); Neutrophils Percent Auto 57.1 % (50-75); Platelet Count 255 X10^3/uL (150-400); Red Blood Cell Count 4.69 X10^6/uL (4.5-5.9); Red Cell Distribution Width 13.6 % (11.6-14.8); White Blood Cell Count 6.1 X10^3/uL (4.5-11.0)
[2024-02-04 14:44] LABS: Hemoglobin A1C% w Est Avg Glu 5.4 % (4.0-6.0)
[2024-02-04 15:00] LABS: Albumin 4.5 g/dL (3.5-5.0); BUN Creatinine Ratio 8.5 (6-22); Blood Urea Nitrogen 12 mg/dL (9-20); Calcium 9.7 mg/dL (8.4-10.2); Carbon Dioxide 29 mmol/L (22-32); Chloride 103 mmol/L (98-107); Estimated Glomerular Filt Rate > 60 mL/min (>60); Glucose 92 mg/dL (70-100); HEMOLYSIS < 15 (0-50); Sodium 139 mmol/L (137-145)
[2024-02-04 15:08] LABS: Prealbumin 26.4 mg/dL (17.6-36.0)
[2024-02-04 15:26] LABS: Vitamin D 25 Hydroxy (D3) 30.3 ng/mL (30.0-100.0)
== END ==
PROVIDERS: PCP Family Medicine; Referring Provider Orthopaedic Surgery Adult Reconstructive Orthopaedic Surgery; Visit Provider Orthopaedic Surgery Adult Reconstructive Orthopaedic Surgery
DX: Z01.818 Encounter for other preprocedural examination (principal); R77.0 Abnormality of albumin; R73.9 Hyperglycemia, unspecified; Z01.812 Encounter for preprocedural laboratory examination; E55.9 Vitamin D deficiency, unspecified
CPT/HCPCS: 36415; 80048; 82040; 82306; 83036; 84134; 85025; 93005; 93010

== ENCOUNTER → 2024-08-26 08:26 | Outpatient (CLI) | payer OTHER, SELFPAY ==
--- NOTE | 2024-08-26 09:13 | EKG_ITS ---
[place] [id number] [place] [id number] Test Date: 2024-08-26 Pat Name: Jarocho Malcolm Department: [facility] Room: Gender: Male Patient Relations Liaison: VI : 1980 Requested By: Order Number: [id number] Reading MD: Louis Owusu Measurements Intervals [place] Rate: 50 P: 13 FL: 164 QRS: 31 QRSD: 90 T: 9 QT: 414 QTc: 377 Interpretive Statements Sinus bradycardia Nonspecific T wave abnormality Electronically Signed On 08-26-2024 16:03:43 PDT by Louis Owusu
[2024-08-26 09:50] LABS: Add Manual Diff / Slide Review NO; Basophils Absolute Auto 0 /uL (0-100); Basophils Percent Auto 0.4 % (0-2); Eosinophils Absolute Auto 100 /uL (0-450); Hematocrit 41.1 % (41-53); Hemoglobin 14.4 g/dL (13.5-17.5); Lymphocytes Absolute Auto 2300 /uL (1100-4500); Lymphocytes Percent Auto 33.1 % (25-40); Mean Corpuscular Hemoglobin 31.7 PG (26-34); Mean Corpuscular Volume 90.5 fL (80-100); Monocytes Absolute Auto 500 /uL (0-900); Monocytes Percent Auto 6.9 % (3-14); Neutrophils Absolute Auto 4000 /uL (1500-7000); Neutrophils Percent Auto 58.6 % (50-75); Platelet Count 231 X10^3/uL (150-400); Red Blood Cell Count 4.54 X10^6/uL (4.5-5.9); Red Cell Distribution Width 13.6 % (11.6-14.8); White Blood Cell Count 6.8 X10^3/uL (4.5-11.0)
[2024-08-26 10:10] LABS: Hemoglobin A1C% w Est Avg Glu 5.5 % (4.0-6.0)
[2024-08-26 10:33] LABS: BUN Creatinine Ratio 11.5 (6-22); Blood Urea Nitrogen 18 mg/dL (9-20); Calcium 9.4 mg/dL (8.4-10.2); Carbon Dioxide 29 mmol/L (22-32); Chloride 105 mmol/L (98-107); Estimated Glomerular Filt Rate 56 mL/min (>60); Glucose 105 mg/dL (70-99); HEMOLYSIS < 15 (0-50); Potassium 4.7 mmol/L (3.4-5.1); Sodium 141 mmol/L (137-145)
[2024-08-26 10:34] LABS: Appearance Urine UA CLEAR; Bilirubin Urine UA NEGATIVE (NEGATIVE); Color Urine UA YELLOW; Glucose Urine UA NEGATIVE (Negative); Ketones Urine UA NEGATIVE (NEGATIVE); Leukocyte Esterase Urine UA NEGATIVE (NEGATIVE); Nitrite Urine UA NEGATIVE (Negative); Occult Blood Urine UA NEGATIVE (Negative); Protein Urine UA NEGATIVE (Negative); Specific Gravity Urine UA >=1.030 (1.000-1.035); Urobilinogen Urine UA 0.2 E.U./dL (0.2)
[2024-08-26 10:41] LABS: Bacteria Urine Occasional (0-1); Hyaline Casts Urine 0-1/LPF; RBC Urine 0-1/HPF (0-5/HPF); Squamous Epithelial Cell Urine 0-1 /HPF (0-5/HPF); Urine Volume 10mL (spun); WBC Urine 0-1/HPF (0-5/HPF)
[2024-08-26 10:42] LABS: Culture Indicated Urine Cult Not Indicated
== END ==
PROVIDERS: PCP Family Medicine; Referring Provider Orthopaedic Surgery; Visit Provider Orthopaedic Surgery
DX: Z01.818 Encounter for other preprocedural examination (principal); Z01.812 Encounter for preprocedural laboratory examination; R73.9 Hyperglycemia, unspecified; N39.0 Urinary tract infection, site not specified
CPT/HCPCS: 36415; 80048; 81001; 83036; 85025; 93005

== ENCOUNTER → 2024-09-08 15:20 | Outpatient (CLI) | payer OTHER, SELFPAY ==
[2024-09-08 16:10] LABS: Albumin 4.7 g/dL (3.5-5.0)
[2024-09-08 16:22] LABS: Prealbumin 33.1 mg/dL (17.6-36.0)
[2024-09-08 16:32] LABS: Vitamin D 25 Hydroxy (D3) 45.2 ng/mL (30.0-100.0)
== END ==
PROVIDERS: PCP Family Medicine; Referring Provider Orthopaedic Surgery Adult Reconstructive Orthopaedic Surgery; Visit Provider Orthopaedic Surgery Adult Reconstructive Orthopaedic Surgery
DX: M16.12 Unilateral primary osteoarthritis, left hip (principal); Z78.9 Other specified health status
CPT/HCPCS: 36415; 82040; 82306; 84134

== ENCOUNTER 2024-12-05 06:05 | Day surgery (SDC) | payer OTHER, SELFPAY ==
[2024-11-28 12:32] VITALS: BMI 37.0
[2024-12-05] VITALS (11 sets, daily range): BP systolic 131–184; BP diastolic 78–108; PULSE 61–89; RESP 12–28; TEMP 36.3–36.8; O2SAT 95–99; BMI 36.4
--- NOTE | 2024-12-05 | DI.RAD.S_ITS ---
PROCEDURE: XR HIP W PEL IF DONE LT 2V INDICATIONS: CHAYITO TECHNIQUE: 2 views of the hip were acquired. COMPARISON: [facility], , XR HIP W PEL IF DONE LT 2V, 09/04/2023, 9:56. FINDINGS AND IMPRESSION: Left hip arthroplasty intraoperative images. Please see operative note for full details. Dictated by: Josiah Pitts M.D. on 12/05/2024 at 12:24 Approved by: Josiah Pitts M.D. on 12/05/2024 at 12:25
[2024-12-05] MEDS: LACTATED RINGERS 1,000 ML 42 ML IV ×2 (06:47→10:34)
[2024-12-05] MEDS: MELOXICAM 7.5 MG TABLET 15 MG PO (06:48)
[2024-12-05] MEDS: ACETAMINOPHEN 325 MG TABLET 975 MG PO (06:48)
--- NOTE | 2024-12-05 07:35 | PM.PREOP ---
Pre-operative Note Interval Note History & Physical reviewed/Exam performed by Physician: Yes Changes to H&P: No H&P completed within 30 days and has changed as indicated here:: Clinically the operative side is short relative to the nonoperative side. I discussed with him and his that because of this, the operative leg may feel longer to him postoperatively
[2024-12-05] MEDS: CEFAZOLIN 2 GM/100 ML PREMIX 100 ML IV (08:15)
[2024-12-05] MEDS: TRANEXAMIC ACID 1,000 MG VIAL 1000 MG INJ ×2 (08:17→10:55)
--- NOTE | 2024-12-05 08:41 | SUR.OPER ---
Supine on padded [place] table with bilateral legs secured in padded positioning boots and suspended in positioning spars, operative leg in traction per surgeon. Head on one pillow. Bilateral arms secured on padded armboard <90 degrees abduction. Padded perineal post in place per surgeon.
[2024-12-05] MEDS: BUPIVACAINE 0.5% W/ EPI (PF) 30 ML VIAL 60 ML INJ (08:57)
[2024-12-05] MEDS: KETOROLAC 30 MG/ML VIAL IM (08:58)
--- NOTE | 2024-12-05 10:38 | SUR.OPER ---
Supine on padded [place] table with bilateral legs secured in padded positioning boots and suspended in positioning spars, operative leg in traction per surgeon. Head on one pillow. Arm on non-operative side secured on padded armboard <90 degrees abduction. Arm on operative side padded and resting across chest then secured with tape over sheet. Padded perineal post in place per surgeon.
--- NOTE | 2024-12-05 11:09 | DI.RAD.S_ITS ---
PROCEDURE: XR HIP W PEL IF DONE LT 2V INDICATIONS: POST OP LEFT ANTERIOR HIP TECHNIQUE: AP pelvis and lateral view of the hip acquired. COMPARISON: [facility], [place], XR HIP W PEL LT 2V, 12/05/2024, 9:11. [facility], CR, XR HIP W PEL IF DONE LT 2V, 09/04/2023, 9:56. FINDINGS: Bones: Patient is status post left hip arthroplasty, with hardware components in expected positions. The hip joint appears congruent. The visualized bony structures appear intact. Soft tissues: Overlying postoperative changes are noted. No suspicious soft tissue densities. IMPRESSION: Expected post-operative appearance of a hip arthroplasty. Dictated by: Alexey Holt M.D. on 12/05/2024 at 16:20 Approved by: Alexey Holt M.D. on 12/05/2024 at 16:20
--- NOTE | 2024-12-05 11:17 | P.OP_ITS ---
Operative Date/Time/Diagnoses Date of procedure: 12/05/24 Time of procedure: 07:45 Pre-op diagnosis: Left hip osteoarthritis Post-op diagnosis: same Procedure & Clinicians Procedure: Left total hip arthroplasty with computer-assisted fluoroscopic analysis Same procedure(s) as scheduled: Yes Surgeon: Garry Vieira Metal Bending Machine Operator: Carmita Lindquist Anesthesia Type: General, Spinal and Local Operative Notes Findings: Severe left hip arthritis Closure Type: primary Applied: implant(s) Estimated Blood Loss (mL): 350 Procedure in detail: 1. Left Uncemented Direct Anterior Hernandez Total Hip Arthroplasty (25842) 2. Computer-Assisted Musculoskeletal Surgical Navigational Orthopedic Procedure Using Fluoroscopic Image Guidance (0054T) Implants: * G7 PPS size 58 cup?with +5 liner * Z1 femoral stem size 3 coxa vara * 36 mm +7 ceramic femoral head? Procedure Summary: This 44-year-old male patient is 5 ft 11 and 260 lb. He had extremely dense bone which was difficult to instrument at multiple different points throughout the procedure. The Lewen clamp which I attempted to use to extract his femoral head broke during my attempt to extract it as it could not ordoñez the cortical bone. The acetabular component had to be removed and I had to reream the acetabulum in order to get the acetabular component to seat more fully. It was very difficult to open the femoral canal which required the use of a box osteotome which I do not normally use during an anterior approach total hip ar throplasty. Trialing was made more challenging by his highly varus orientation to his proximal femur. I initially found that he was long and had increased offset as compared to the other side and sequentially sank the stem further down the canal twice in order to minimize the length of the construct. Once I had done this it improved his length however he became unstable with external rotation past about 100?. I had already maximized the head size so at that point in time I removed the neutral liner that I had initially placed and replaced it with a +5 liner. I did this in conjunction with further sinking of the broach down the canal. Once I had done this the instability with maximum external rotation was resolved and leg lengths were closer to equal. He had started fluoroscopically 1 mm long relative to the nonoperative side but was clinically short. On the final fluoroscopic measurements he was approximately 2 mm long relative to the nonoperative side with better mu-ism of his offset after implantation of the offset liner. Procedure in Detail: This patient was seen preoperatively and evaluated for hip pain which was refractory to numerous nonoperative treatment modalities. Their hip pain correlated with radiographic changes demonstrating significant degeneration in the hip joint. The risks and benefits of continued nonoperative management versus operative management were discussed at length and all of the patient?s questions were answered. Additional educational materials providing further details beyond our discussion in clinic were provided via a publicly available patient education video which included the incidence of medical complications associated with total hip arthroplasty, reasons for revision following total hip arthroplasty, and patient satisfaction rates following total hip arthroplasty. With this understanding of the risks inherent to the procedure, the patient elected to move forward with operative management. Following preoperative optimization, the patient was scheduled for surgery. The patient was met in the preoperative holding area the day of the procedure and all questions were answered. The patient?s nares were swabbed in order to decolonize them from MRSA. Informed consent was signed and the left limb was marked with indelible ink.? The patient was brought back to the operating room where anesthesia was induced. The patient was transferred to the [place] table and all bony prominences were padded. The operative site was prepped and draped in the usual sterile fashion. Prior to incision, tranexamic acid and cefazolin were administered. Operative templating images were displayed demonstrating the anticipated implant sizes and correct operative extremity. A timeout procedure was performed verifying the patient?s identity, medical comorbidities, allergies, relevant medications, anesthesia type and the surgical plan. All present were in agreement. The assistance of a physician laboratory assistant was required for positioning, room setup, soft tissue retraction and wound closure. Without this assistance, the procedure would have been significantly more challenging and time consuming.?? A direct anterior approach to the hip was utilized. This was performed with a longitudinal incision through a Heuter interval. The incision was planned 2 cm distal and 2 cm lateral to the ASIS extending towards the lateral patella, in line with the muscle body of the TFL. Following incision, the subcutaneous tissue was dissected while taking care to avoid injury to the lateral femoral cutaneous nerve. The fascia overlying the TFL was identified by dissecting off the overlying fat and identifying perforating vessels to the TFL. The TFL fascia was incised and dissected away from the medial border of the TFL. A retractor was placed over the superior femoral neck between the abductors and the hip capsule and used to reflect the TFL laterally. A [place] self-retainer was then placed in the distal aspect of the wound between the TFL and the rectus femoris. This was tensioned to open up the direct anterior interval and the lateral circumflex vessels were identified and coagulated using electrocautery. The floor of the TFL fascia was incised, exposing the pericapsular fat overlying the hip capsule. A second cobra retractor was placed on the inferior femoral neck. A retractor was placed on the anterior wall of the acetabulum and used to tension the reflected head of rectus femoris, which was then released in order to limit soft tissue tension. A capsulotomy was made in the midline of the anterior hip capsule in line with the femoral neck ending at the vastus tubercle. The anterior retractor was removed as soon as the capsulotomy was completed in order to limit the amount of time that a soft tissue retractor remained on the anterior wall and limit tension on the femoral nerve. Tag stitches were placed in the superior and inferior leaflets of the hip capsule. An [place] soft tissue retractor was introduced over the tag stitches and tensioned in the interval between the rectus femoris and the TFL in order to retract and protect those muscles. The cobra retractors were replaced intracapsularly, with one over the superior neck in the pocket created by the base of the greater trochanter and the other on the femoral head. The capsulotomy was extended laterally to the base of the greater trochanter and medially to the lesser trochanter. This required externally rotating the hip. Once the lesser trochanter had been identified, a neck cut was planned according to measurements from preoperative templating. A ruler was cut at the length measured between the superior aspect of the lesser trochanter and the collar of the prosthesis. This line was extended towards the inferior aspect of the lateral cobra retractor to plan a cut which would leave minimal residual femoral neck laterally. The neck was cut at 60 degrees of external rotation along that line. A second cut was performed to remove a large napkin ring and facilitate head extraction. The napkin ring cut and femoral head were removed.?? A broad anterior wall retractor was placed between the labrum and the anterior capsule so that the anterior capsule would prevent capturing and pinching the femoral nerve anteriorly. An additional retractor was placed on the posterior wall. External rotation and traction were applied through the [place] table so that the cut surface of the femoral neck would not restrict access to the acetabulum. The labrum was excised sharply and the pulvinar was excised with electrocautery to limit bleeding from branches of the obturator artery. Acetabular reamers were selected based on preoperative templating and measurements of the excised femoral head. These were introduced into the acetabulum. Fluoroscopy was utilized to replicate a standing AP pelvis radiograph by centering over the pelvis, rotating until there was appropriate symmetry between the obturator foramen, and introducing caudal tilt to match the position of the pubic symphysis relative to the sacrococcygeal junction according to the patient?s anatomy. Once satisfied with the reaming depth corresponding to the preoperative template and the pinch fit between the columns, an appropriate sized acetabular cup was selected which would provide 1 mm of press-fit. This cup was introduced and manipulated until appropriate abduction and anteversion angles were obtained with careful attention to appropriate abduction and anteversion angles as evaluated by the position of the cup relative to the anterior and posterior mercado of the acetabulum and the AP fluoroscopy which recreated the patient?s standing radiograph. The cup was impacted into place. Peripheral osteophytes were removed. The acetabular liner was then placed with care to ensure locking of the locking mechanism. Attention was then turned to the femur. All retractors were removed, traction was released, a retractor was placed in the interval between the hip capsule and the gluteus minimus. The lateral capsule was released using electrocautery. Traction was released and a [place] hook was placed posteriorly around the proximal femur at the level of the vastus ridge. The table height was lowered in order to restrict the tension on the anterior structures during hip hyperextension to limit the risk of femoral nerve palsy. With traction off and the hip at 90 degrees of external rotation, the hip was hyperextended and adducted while manually elevating the femur away from the acetabulum with the [place] hook to avoid hooking the greater trochanter on the pelvis. An asymmetric retractor was placed over the calcar and a broad double-pronged retractor was placed over the greater trochanter. The tag stitch capturing the lateral leaflet of the capsule was moved to the medial side, leaving the conjoined and piriformis tendons isolated in the face of the greater trochanter. The hip was externally rotated and elevated. A release of the conjoined tendon was necessary in order to obtain adequate exposure for broaching. The canal was opened with an opening broach and a rasp was used to remove cancellous bone. A rongeur was used to remove the residual lateral bone at the base of the greater trochanter to avoid placing the stem in varus. The femur was then broached to the appropriate sized stem yielding good rotational fit and fill of the canal as well as appropriate version of the stem trial. Neck and head trials were placed, all retractors were removed and the hip was returned to neutral abduction and extension. I then reduced the hip and manually trialed it before changing surgical gloves. Initial trialing was performed with a size 3 broach, a coxa vara offset neck and a +7 head. I initially manually externally rotated the hip and found that the hip did not dislocate. I then locked the hip in 45 degrees of external rotation and dropped it to the floor with traction off which demonstrated no instability. An AP pelvis fluoroscopic image matching the preoperative standing radiograph with both lesser trochanters visible and both hips in 40 degrees of external rotation demonstrated that the operative side had excess lengths and diminished offset as compared to the other side. AP and lateral hip fluoroscopic images were obtained to evaluate the broach size which demonstrated good canal fill in his very tight canal. The hip was dislocated and I returned to the broaching position. Based on my evaluation during initial trialing I planned to sink the broach further down the femur and retrial. I returned to the broaching position and used smaller sized broaches as rasps to remove bone and then sank the size 3 broach further down the canal. I calcar planed again and returned to trialing. I initially utilized a +3.5 head but found that the construct was quite loose and he dislocated with external rotation so transitioned back to a +7 head. During the trialing process I found that the excess length had been reduced however he was now unstable with maximum external rotation, dislocating at around 100? of external rotation. The operative site was still long relative to the nonoperative side as well when measured fluoroscopically. I therefore returned to the broaching position and further sink the broach down the canal. When calcar planing I could see the top of the lesser trochanter at that point in time. I then removed the retractors and exposed the acetabulum while leaving the broach in place. I removed the initially placed neutral liner and replaced it with a +5 liner intending for this to give some additional offset beyond what had been obtained with the initial construct. I replaced the coxa vara neck and the +7 head and reduced the hip. It now did not dislocate with maximum external rotation. Fluoroscopic images were obtained demonstrating improved offset relative to the nonoperative side, and lengthening of approximately 2 mm relative to the nonoperative side. I therefore planned to place this definitive construct. The definitive stem was placed and the trunnion was cleaned and dried. I placed a ceramic head onto the trunnion and impacted it into place on the Mauro taper.?? All retractors were removed and the hip was reduced. A dilute mixture of betadine and peroxide was used to bathe the soft tissues during final fluoroscopic assessment. Appropriate component positioning was confirmed on an AP pelvis radiograph with the operative and nonoperative legs in 40 degrees of external rotation, evaluating leg length and offset. Appropriate stem fill was evaluated on AP and lateral hip radiographs. No previously unrecognized fractures were identified on these radiographs. There was no hip instability with maximum (100?) external rotation as well as a 45 degree drop test. The hip was copiously irrigated with pulse lavage. The capsule was closed with absorbable interrupted suture. The TFL fascia was closed with barbed suture while carefully protecting the lateral femoral cutaneous nerve from entrapment. A mixture of Ropivacaine, Epinephrine and Toradol was infiltrated throughout the soft tissues. The skin was closed with 2-0 and 3-0 sutures. Surgical glue was applied and a soft dressing was placed.??The sponge, instrument and needle counts were reported as being correct at the end of the case.??No obvious complications occurred. The patient was transferred from the [facility] back to a stretcher. The patient emerged from anesthesia without difficulty and was taken to the PACU in a stable condition.? Plan for aftercare: * No hip precautions * Weightbearing as tolerated * Aspirin 81 twice per day for DVT prophylaxis * Anticipate discharge home today * Obtain BMP 2 weeks postoperatively to check kidney function while taking NSAIDs * Multimodal pain regimen with no IV opioids ordered * Follow up at [facility] in 2 weeks Complications: none Post-operative Condition: stable Disposition: PACU
[2024-12-05] MEDS: HYDROMORPHONE 1 MG INJ IV ×4 (11:55→12:40)
[2024-12-05] MEDS: OXYCODONE IR 5 MG TABLET PO ×2 (12:37→13:43)
--- NOTE | 2024-12-05 12:55 | SUR.PHASEI ---
Pt's BP in PACU continues to trend high, 170s/100s, 168/90, on arrival pt's BP 131/81; Pain addressed w/ IV and PO meds, with no change to BP. Called Dr You, order received for metoprolol 25mg PO x 1 now. Order entered, awaiting med from pharmacy.
[2024-12-05] MEDS: METOPROLOL IR 25 MG TABLET PO (13:06)
[2024-12-05] MEDS: ACETAMINOPHEN 325 MG TABLET 650 MG PO (13:43)
--- NOTE | 2024-12-05 13:54 | PT.IIE ---
Current Diagnoses Unilateral primary osteoarthritis, left hip (12/05/24) Surgery Performed Operation Date: 12/05/24 07:45 Actual Procedures p Total Hip Arthroplasty/Anterior Approach(Left) - Garry Vieira MD Surgical History (Last Updated 09/13/23 @ 20:41 by Vielka Camejo) Anesthesia History of cholecystectomy (~2016) Medical History (Last Updated 11/28/24 @ 13:11 by Nimisha Briones RN) ADHD (attention deficit hyperactivity disorder), inattentive type Anxiety Biliary dyskinesia Chronic left hip pain Chronic low back pain with left-sided sciatica Chronic pain of left knee CKD (chronic kidney disease) stage 3, GFR 30-59 ml/min Depression Gastroenteritis Generalized anxiety disorder GERD (gastroesophageal reflux disease) (~2010) History of COVID-19 (2021) Hyperlipidemia Primary osteoarthritis of left hip Sleep apnea Tension headache Physical Therapy Inpatient Evaluation/Re-Eval M1 PT/OT-IP Prior Functional Status Start: 12/05/24 13:16 Freq: NEEDED Status: Active Protocol: Document 12/05/24 13:35 MB (Rec: 12/05/24 13:54 MB Desktop) Medical Review Prior Functional Status Medical History Yes Reviewed Diet/Fluid Regular Consistency Communication WNLs Mobility and Gait I Activities of Daily I Living and IADL's Social History Household Members spouse,family,children Living Arrangements House Number of Floors ( One Floor Floors) Number of Stairs To 2 steps with left rail ascend Enter/Railing? Home Environment Walk in Shower Home Equipment Front Wheel Walker M2 PT-IP Current Condition Start: 12/05/24 13:16 Freq: NEEDED Status: Active Protocol: Document 12/05/24 13:35 MB (Rec: 12/05/24 13:54 MB Desktop) Physical Therapy Current Condition Current Condition Evaluation Date 12/05/24 Treatment Diagnosis Left anterior CHAYITO M3 PT-IP Subjective Start: 12/05/24 13:16 Freq: NEEDED Status: Active Protocol: Document 12/05/24 13:35 MB (Rec: 12/05/24 13:54 MB Desktop) Subjective Physical Therapy Visit Type Type Initial Evaluation Visit Start Time 13:35 Visit Stop Time 13:45 Number of RAMP SERVICE AGENT Visits 0 Physical Therapy Visit Comments Patient Comments Pt is agreeable to PT. Therapy Pain Assessment Pain When Pain Assessed At Rest Pain Present Pain Present Pain Reported Location Left Hip Intensity 9 Scale Used Numeric (0 - 10) Pain Management Re-positioning,Timing of Activity with Medications Techniques M4 PT-IP Mobility and Gait Start: 12/05/24 13:16 Freq: NEEDED Status: Active Protocol: Document 12/05/24 13:35 MB (Rec: 12/05/24 13:54 MB Desktop) PT-Bed Mobility Assessment Supine to Sit Supine to Sit Independent Scooting Scooting to Edge of Independent Bed PT-Transfer Assessment Sit to and From Stand Sit to and from Standby Assistance Stand Equipment Transfer Assistive Gait Belt,Front Wheeled Walker Device Transfers Transfer Destination Bed Transfer Technique Ambulation from bed, around unit and back to bed Transfer Ability Level of Assist Standby Assistance Gait Assessment Gait Gait Assistance Standby Assistance Required: Distance (Feet) 40 Able to Maintain Yes Weight Bearing Status During Gait Assistive Devices Assistive Device Gait Belt,Front Wheeled Walker Gait Deviations General Gait Pattern Antalgic,Decreased Stride Length,Decreased Feet Clearance,Step-to Gait Factors Limiting Gait Function Factors Limiting Difficulty Following Directions,Limited Range of Motion Gait Function ,Pain Comments Gait Comments Pt with some lethargy post-op, tends to perform step-to gait rather than step-through PT-Balance Assessment Sitting Balance and Reactions Static Sitting Good Balance Ability Dynamic Sitting Good Balance Ability Standing Balance and Reactions Static Standing Good Balance Ability Dynamic Standing Good Balance Ability Device Used RW M5 PT-IP Objective Assessments Start: 12/05/24 13:16 Freq: NEEDED Status: Active Protocol: Document 12/05/24 13:35 MB (Rec: 12/05/24 13:54 MB Desktop) Orientation Orientation/Cognition Level of Alertness Alert Orientation Name Language Function No Deficits Noted Ability Safety Awareness Understands Safety Issues Memory Description No Deficits Noted Gross Range of Motion Upper Extremity ROM Assessment Within Functional Limits Lower Extremity ROM Assessment Left Impaired Strength Upper Extremity Strength Assessment Within Functional Limits Lower Extremity Strength Assessment Left Impaired Comments Strength Comments MMT deferred and functional assessment only and limitations in hip and knee Coordination Assessment Assessment Coordination NT Comments Sensation Assessment Comments Sensation Comments Sensation returning post-op with spinal Muscle Tone Muscle Tone WNL Yes M6 PT-IP Treatment Start: 12/05/24 13:16 Freq: NEEDED Status: Active Protocol: Document 12/05/24 13:35 MB (Rec: 12/05/24 13:54 MB Desktop) Physical Therapy Treatment Exercises Exercises Ankle Pumps,Gluteal Sets,Quad Sets,Heel Slides Education Education Provided Weight Bearing Status,Post-Op Packet,Safety Other Treatments Other Treatment Demo proper stair training using left rail ascend, both Performed hands on rail and ascend first with right foot and descend first with left foot M7 PT-IP Assessment and Plan Start: 12/05/24 13:16 Freq: NEEDED Status: Active Protocol: Document 12/05/24 13:35 MB (Rec: 12/05/24 13:54 MB Desktop) PT Summary Assessment and Plan Potential Rehabilitation Good Potential Status of Condition Evolving at Evaluation Summary Impairments Pain,ROM,Strength,Balance,Transfers,Gait,Activity Tolerance Assessment Summary Pt is a 44 y/o male same day surgery for left anterior hip replacement. Pt presents with high left hip pain and antalgic gait today. Ed pt and in post-op exercises, icing, proper gait with walker working on step-through and normal gait with RW until he sees OPPT , no hip precautions and transitioning to rollator for outdoor gait when ready. No further acute PT needs and will d/c PT. Frequency of Treatment Frequency Of Discharge Treatment Weight Bearing Status Weight Bearing Weight Bear as Tolerated Status Recommendations To Nursing Amount of Assist Standby Assistance Needed Discharge Recommendations PT Discharge Home with Assistance,Outpatient PT Recommendations Transportation Needs Private Vehicle at Discharge - PT assist x1
[2024-12-05] MEDS: GABAPENTIN 300 MG CAPSULE PO (14:33)
== END 2024-12-05 14:45 | disposition home or self-care (01) ==
PROVIDERS: Family Provider Family Medicine; PCP Family Medicine; Referring Provider Orthopaedic Surgery Adult Reconstructive Orthopaedic Surgery; Visit Provider Orthopaedic Surgery Adult Reconstructive Orthopaedic Surgery
PROC: (CPT 27130; principal; 2024-12-05 07:45)
DX: M16.12 Unilateral primary osteoarthritis, left hip (principal); N18.30 Chronic kidney disease, stage 3 unspecified; M25.752 Osteophyte, left hip
CPT/HCPCS: 27130; 0054T; 73502; 76000; 97161; C1776; C1713; J0330; J0690; J1100; J1171; J1885; J2250; J2405; J2704; J3010

== ENCOUNTER → 2025-02-17 11:48 | Outpatient (CLI) | payer OTHER, SELFPAY ==
--- NOTE | 2025-02-17 11:49 | DI.MRI.S_ITS ---
PROCEDURE: MR KNEE LT WO CON INDICATIONS: left knee pain TECHNIQUE: Noncontrast sagittal PD fast spin echo and T2 fast spin echo with fat saturation, sagittal 3-D FLASH with fat saturation; coronal T1 spin echo and PD fast spin echo with fat saturation, and axial PD fast spin echo with fat saturation through the knee. COMPARISON: None. FINDINGS: Image quality: Excellent. Menisci: Peripheral displacement of medial meniscus bowing medial collateral ligament is seen. Bucket-handle type tear involving medial meniscus is seen with centrally displaced torn medial meniscal fragment anterior to the posterior cruciate ligament. The lateral meniscus is intact. Cruciate ligaments: The anterior and posterior cruciate ligaments appear intact. Medial structures: The medial collateral ligament appears intact. Visualized portions of the pes anserinus tendons appear normal. No abnormal bursal fluid. Lateral structures: The lateral collateral ligament, long and short heads of the biceps femoris tendon appear intact. The popliteus tendon appears intact. Iliotibial band appears normal. Anterior structures: Distal quadriceps tendinosis at its superior patellar insertion is seen. The patellar tendon is intact. Patellar alignment is normal. Bones and cartilage: No bone marrow contusions or fractures. Medial femoral tibial compartment joint space narrowing, subchondral sclerosis and low-grade chondromalacia is seen. Articulating cartilage in lateral femoral tibial compartment and patellofemoral compartment is normal in thickness. Joint space: There is small knee joint fluid. There is a tiny bakers cyst. Normal appearing synovial plicae are incidentally noted. IMPRESSION: 1. Bucket-handle type tear involving medial meniscus with centrally displaced torn medial meniscal fragment anterior to the PCL. No evidence of lateral meniscal tear. 2. The cruciate ligaments are intact. 3. 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 No fracture or dislocation. Small joint effusion and a tiny Chino's cyst. No loose bodies. 4. Distal quadriceps tendinosis. Dictated by: David Smith M.D. on 02/17/2025 at 13:40 Approved by: David Smith M.D. on 02/17/2025 at 13:53
== END ==
LOC: MRI 11:48
PROVIDERS: Family Provider Family Medicine; PCP Family Medicine; Referring Provider Orthopaedic Surgery Adult Reconstructive Orthopaedic Surgery; Visit Provider Orthopaedic Surgery Adult Reconstructive Orthopaedic Surgery
DX: S83.212A Bucket-handle tear of medial meniscus, current injury, left knee, initial encounter (principal); M17.12 Unilateral primary osteoarthritis, left knee; M94.262 Chondromalacia, left knee; M25.462 Effusion, left knee; M25.562 Pain in left knee
CPT/HCPCS: 73721

== ENCOUNTER 2025-02-22 07:30 | Outpatient (RCR) | payer OTHER, SELFPAY ==
--- NOTE | 2024-12-14 09:42 | PT.OIE ---
Current Diagnoses Unilateral primary osteoarthritis, left hip (12/14/24) Presence of unspecified artificial hip joint (12/14/24) Past Medical History (Last Updated 11/28/24 @ 13:11 by Nimisha Briones RN) ADHD (attention deficit hyperactivity disorder), inattentive type Anxiety Biliary dyskinesia Chronic left hip pain Chronic low back pain with left-sided sciatica Chronic pain of left knee CKD (chronic kidney disease) stage 3, GFR 30-59 ml/min Depression Gastroenteritis Generalized anxiety disorder GERD (gastroesophageal reflux disease) (~2010) History of COVID-19 (2021) Hyperlipidemia Primary osteoarthritis of left hip Sleep apnea Tension headache Past Surgical History (Last Updated 09/13/23 @ 20:41 by Vielka Camejo) Anesthesia History of cholecystectomy (~2016) Visit Care Team Role Provider Type Seng Jones MD Family Provider Physician Primary Care Provider Specialty: Family Practice Obstetrics Address: [address] [place] [address], [id number] Email: [email or web address] Dahlia Pop PA-C Attending Provider [employer] Winder Helper Referring Provider Specialty: Orthopedics Orthopedic Surgery Address: [address] [place] [address], [id number] Email: [email or web address] Physical Therapy Initial Evaluation PT OP: Lower Back/Lower Extremity Start: 12/14/24 07:39 Freq: Status: Active Protocol: Document 12/14/24 09:18 KW (Rec: 12/14/24 09:33 KW Laptop) Out-Patient Physical Therapy Visit Information Visit Information Visit Type Initial Evaluation Visit Start Time 07:30 Visit Stop Time 08:10 Visit Number 1 Progress Note Due 01/13/25 Precautions Precautions L anterior hip precautions Current Condition History of Current Condition Onset Date 12/05/2024 Current Complaints L hip pain and weakness History of Current L anterior approach Total hip arthroplasty Condition early onset DJD, unknown etiology. Gilmar is a father of 4 , commutes 120 min to his job in [place]. He is able to work remote for a quarter. He lives in a one level home . Also c/0 L knee pain, LBP, L vidhya-scapular pain. He would like get back to his active life with kids. Treatment Goals Patient/Caregiver to play with kids without limitations Goals Patient Questionnaires Lower Extremity Functional Scale LEFS Score 8 LEFS Impairment 1 to 19% Impaired (Score 63-79) OP-PT Pain Assessment Location L hip Pain Location L hip Details Pain Intensity 8 Scale Used Numeric (0 - 10) Frequency Frequent Pain Alleviating Cold,Medication,Inactivity,Lying Supine Factors Pain Aggravating ADL's,Activity,Exercise Factors Balance Tests Single Limb Standing Single Limb- Right WNL Single Limb- Left deferred OP Mobility Evaluation Bed Mobility Rolling cues for not holding breath Supine to and from cues for CORE recruitment Sit OP Gait Assessment Gait Gait Assistance Independent Required: Distance (Feet) 1,000 Assistive Devices Assistive Device Straight Cane Gait Deviations General Gait Pattern Antalgic Stair Climbing Evaluation Evaluation Level of Assist On Independent Stairs Devices Stair Climbing Straight Cane Assistive Devices Technique/Endurance Stair Climbing Ascend and Descend Direction Stair Climbing Step to Step Technique Posture Evaluation Position Standing Evaluation View Lateral Comments Posture Comments increased WB thru R LE, hyperextension of knees R > L decreased gluteal and CORE activation Hip Goniometric Range of Motion Hip left Testing Position Supine Flexion w/Knee 90 Flexed Comments precautions limiting ROM Special Tests Hip Special Tests Hip IR:ER Ratios Test Results deferred due to precuations Hip Strength Hip Manual Muscle Testing Left Flexion (L2) 3 Fair Abduction 3 Fair External Rotation 3 Fair Internal Rotation 3 Fair Therapeutic Exercises Supine Exercises heel slides Supine Exercise Name heel slides, quad sets, glut sets, bridging per post op ther-ex Side bilateral Standing Exercises standing counter exercises Standing Exercise heel raises, L hip marching to 90, mini squats, hip abd Name activation Side bilateral Reps/Minutes 2 x 10 Therapeutic Activity Therapeutic Activity breath work for pain control Name breath work for pain management Gait Training Gait Activity SPC Description SPC cane training in R hand Self-Care/Home Management Treatment Education Patient Education Body Mechanics,Home Exercise Program,Joint Protection, Pain Management,Posture Physical Therapy Assessment Rehab Potential Rehabilitation Excellent Potential Evaluation Complexity Number of Personal 1-2 Factors/ Comorbidities Number of Body 1-2 Systems Impaired Clinical Stable Presentation at Evaluation Impairments Impairments Activity Tolerance,Balance,Functional Activities, Functional Mobility,Gait,Pain,Posture,ROM,Strength Goals Three Impairment lack of HEP Short Term Goal (STG patient demonstrates compliance with HEP ) STG Duration 6 weeks Two Impairment pain level elevated Short Term Goal (STG patient reports improved pain at least 50% ) STG Duration 6 weeks One Impairment impaired strength Short Term Goal (STG patient with L hip strength 4/5 all directions ) STG Duration 6 weeks Assessment Summary Assessment 44 yo male s/p L total hip 10 days ago. Anticipate quick progression with PT. Focus will also be on CORE strength as quite poor today. Physical Therapy Plan Frequency and Duration Frequency of 2x/Week Treatment Plan of Care Start 12/14/24 Date Plan of Care End 03/14/25 Date Therapeutic Interventions Therapeutic Balance Training,Gait Training,Home Exercise Program, Interventions Joint Mobilizations,Manual Therapy,Neuromuscular Re- education,Patient/Caregiver Education,Self-Care/Home Management,Soft Tissue Mobilization,Therapeutic Activities,Therapeutic Exercises Modalities Cold Pack/Ice Massage,Electric Stimulation,Hot Packs, Ultrasound Next Visit Focus/Plan Next Note Type Treatment Note
--- NOTE | 2024-12-16 07:44 | PT.OTN ---
Current Diagnoses Unilateral primary osteoarthritis, left hip (12/16/24) Presence of unspecified artificial hip joint (12/16/24) Physical Therapy Treatment Note PT OP: Lower Back/Lower Extremity Start: 12/14/24 07:39 Freq: Status: Active Protocol: Document 12/16/24 07:39 KW (Rec: 12/16/24 07:44 KW Laptop) Out-Patient Physical Therapy Visit Information Visit Information Visit Type Treatment Note Visit Start Time 07:30 Visit Stop Time 08:10 Visit Number 2 Progress Note Due 01/13/25 Precautions Precautions L anterior hip precautions OP-PT Subjective Patient Comments Patient Comments doing well, down to using SPC Cardio Equipment Recumbent Elliptical (NuStep) Duration (Minutes) 10 Resistance 2 Gym Equipment Shuttle Recovery squats Details 50 # B 37# single Reps/Time 2 x 10 Shuttle Balance red Details AP ML Therapeutic Ball supine Exercise Details supine hamstring curls, LTR, bridge Reps/Duration x 10 each Therapeutic Exercises Supine Exercises TKE Supine Exercise Name TKE 5 # Standing Exercises KYLIE wedge Standing Exercise gastroc soleus stretch Name Reps/Minutes 1 min each Physical Therapy Assessment Rehab Potential Rehabilitation Excellent Potential Goals Three Impairment lack of HEP Short Term Goal (STG patient demonstrates compliance with HEP ) STG Duration 6 weeks Two Impairment pain level elevated Short Term Goal (STG patient reports improved pain at least 50% ) STG Duration 6 weeks One Impairment impaired strength Short Term Goal (STG patient with L hip strength 4/5 all directions ) STG Duration 6 weeks Assessment Summary Assessment pt really liked nu step and getting moving again. [place] better blood flow to foot Physical Therapy Plan Frequency and Duration Frequency of 2x/Week Treatment Plan of Care Start 12/14/24 Date Plan of Care End 03/14/25 Date Next Visit Focus/Plan Next Note Type Treatment Note
--- NOTE | 2024-12-21 07:42 | PT.OTN ---
Current Diagnoses Unilateral primary osteoarthritis, left hip (12/21/24) Presence of unspecified artificial hip joint (12/21/24) Physical Therapy Treatment Note PT OP: Lower Back/Lower Extremity Start: 12/14/24 07:39 Freq: Status: Active Protocol: Document 12/21/24 07:37 KW (Rec: 12/21/24 07:42 KW Laptop) Out-Patient Physical Therapy Visit Information Visit Information Visit Type Treatment Note Visit Start Time 07:30 Visit Stop Time 08:10 Visit Number 3 Progress Note Due 01/13/25 Precautions Precautions L anterior hip precautions OP-PT Subjective Patient Comments Patient Comments doing well, down to using SPC had f/u with MD, he was pleased Cardio Equipment Recumbent Elliptical (NuStep) Duration (Minutes) 10 Resistance 2 Gym Equipment Shuttle Recovery squats Details 50 # B 37# single Reps/Time 2 x 10 Shuttle Balance red Details AP ML Therapeutic Ball supine Exercise Details supine hamstring curls, LTR, bridge Reps/Duration 2 x 10 each Therapeutic Exercises Supine Exercises TKE Supine Exercise Name TKE 10 # heel slides Supine Exercise Name heel slides, quad sets, glut sets, bridging per post op ther-ex Side bilateral Standing Exercises 4 way band walk outs Standing Exercise 4 way band walk out orange band Name Comments x 5 each KYLIE wedge Standing Exercise gastroc soleus stretch Name Equipment Used KYLIE wedge Reps/Minutes 1 min each standing counter exercises Standing Exercise heel raises, L hip marching to 90, mini squats, hip abd Name activation Side bilateral Reps/Minutes 2 x 10 Physical Therapy Assessment Rehab Potential Rehabilitation Excellent Potential Goals Three Impairment lack of HEP Short Term Goal (STG patient demonstrates compliance with HEP ) STG Duration 6 weeks Two Impairment pain level elevated Short Term Goal (STG patient reports improved pain at least 50% ) STG Duration 6 weeks One Impairment impaired strength Short Term Goal (STG patient with L hip strength 4/5 all directions ) STG Duration 6 weeks Assessment Summary Assessment progressing well with ther-ex, gait, balance, ROM Physical Therapy Plan Frequency and Duration Frequency of 2x/Week Treatment Plan of Care Start 12/14/24 Date Plan of Care End 03/14/25 Date Next Visit Focus/Plan Next Note Type Treatment Note
--- NOTE | 2024-12-23 07:55 | PT.OTN ---
Current Diagnoses Unilateral primary osteoarthritis, left hip (12/23/24) Presence of unspecified artificial hip joint (12/23/24) Physical Therapy Treatment Note PT OP: Lower Back/Lower Extremity Start: 12/14/24 07:39 Freq: Status: Active Protocol: Document 12/23/24 07:53 KW (Rec: 12/23/24 07:55 KW Laptop) Out-Patient Physical Therapy Visit Information Visit Information Visit Type Treatment Note Visit Start Time 07:50 Visit Stop Time 08:15 Visit Number 4 Progress Note Due 01/13/25 Precautions Precautions L anterior hip precautions OP-PT Subjective Patient Comments Patient Comments running late. Didn't sleep. Was on his feet during the day a lot. Cardio Equipment Recumbent Stepper (Sci-Fit) Duration (Minutes) 5 Gym Equipment Shuttle Recovery squats Details 50 # B 37# single Reps/Time 2 x 10 Shuttle Balance red Details AP ML Therapeutic Ball supine Exercise Details supine hamstring curls, LTR, bridge Reps/Duration 2 x 10 each Therapeutic Exercises Supine Exercises TKE Supine Exercise Name TKE 10 # heel slides Supine Exercise Name heel slides, quad sets, glut sets, bridging per post op ther-ex Side bilateral Standing Exercises 4 way band walk outs Standing Exercise 4 way band walk out orange band Name Comments x 5 each KYLIE wedge Standing Exercise gastroc soleus stretch Name Equipment Used KYLIE wedge Reps/Minutes 1 min each standing counter exercises Standing Exercise heel raises, L hip marching to 90, mini squats, hip abd Name activation Side bilateral Reps/Minutes 2 x 10 Physical Therapy Assessment Goals Three Impairment lack of HEP Short Term Goal (STG patient demonstrates compliance with HEP ) STG Duration 6 weeks Two Impairment pain level elevated Short Term Goal (STG patient reports improved pain at least 50% ) STG Duration 6 weeks One Impairment impaired strength Short Term Goal (STG patient with L hip strength 4/5 all directions ) STG Duration 6 weeks Assessment Summary Assessment shortened visit today as running late Physical Therapy Plan Frequency and Duration Frequency of 2x/Week Treatment Plan of Care Start 12/14/24 Date Plan of Care End 03/14/25 Date Next Visit Focus/Plan Next Note Type Treatment Note Next Visit Plan Nu step shuttle balance ther-ex
--- NOTE | 2025-01-03 12:33 | PT-OP ANOTE ---
called to speak with patient regarding wait list and future appointments. He agreed to be on the wait list. I told him to accept visits that meet his schedule of back to work and 3 kids going back to school
--- NOTE | 2025-01-18 09:16 | PT.OTN ---
Current Diagnoses Unilateral primary osteoarthritis, left hip (01/18/25) Presence of unspecified artificial hip joint (01/18/25) Physical Therapy Treatment Note PT OP: Lower Back/Lower Extremity Start: 12/14/24 07:39 Freq: Status: Active Protocol: Document 01/18/25 07:24 AKIN (Rec: 01/18/25 09:15 AKIN [id number]) Out-Patient Physical Therapy Visit Information Visit Information Visit Type Treatment Note Visit Start Time 07:30 Visit Stop Time 08:10 Visit Number 5 Number of ANAESTHESIOLOGIST Visits 0 Progress Note Due 01/13/25 Precautions Precautions L anterior hip precautions OP-PT Subjective Patient Comments Patient Comments Patient reports his hip is doing well. He reports was cleared to return to work. Cardio Equipment Bicycle (Upright) Duration (Minutes) 6 Resistance level 5 Therapeutic Exercises Sidelying Exercises Sidelying hip abduction Side left Resistance 0 Reps/Minutes 3x10 Standing Exercises Standing marches Resistance 2# Reps/Minutes 3x10 Hip abduction Equipment Used 2# Reps/Minutes 3x10 Comments Cues for avoiding hip flexion Lateral tap downs Equipment Used 4 step, 6 step for last 2 sets Reps/Minutes 5x10 Comments Cues for controlled eccentric Standing hip abduction Resistance 2# Reps/Minutes 2x10 each side Standing hip flexion Resistance 2# Reps/Minutes 3x10 Step ups Resistance 6 step Reps/Minutes 4x10 Squat to chair Reps/Minutes 3x10 Physical Therapy Assessment Goals Three Impairment lack of HEP Short Term Goal (STG patient demonstrates compliance with HEP ) STG Duration 6 weeks Two Impairment pain level elevated Short Term Goal (STG patient reports improved pain at least 50% ) STG Duration 6 weeks One Impairment impaired strength Short Term Goal (STG patient with L hip strength 4/5 all directions ) STG Duration 6 weeks Assessment Summary Assessment Treatment focused on gentle L hip strengthening. Patient tolerated treatment well with no lasting increases in pain levels. He noted some pain/ cramping with hip flexion exercises so plan to follow up on this next session. Also plan to complete progress note and update HEP. Physical Therapy Plan Frequency and Duration Frequency of 2x/Week Treatment Plan of Care Start 12/14/24 Date Plan of Care End 03/14/25 Date Next Visit Focus/Plan Next Note Type Progress Note Next Visit Plan Complete progress update and update HEP. Follow up on response to today's session.
--- NOTE | 2025-01-20 08:44 | PT.OPPN ---
Current Diagnoses Unilateral primary osteoarthritis, left hip (01/20/25) Presence of unspecified artificial hip joint (01/20/25) Physical Therapy Progress Note PT OP: Lower Back/Lower Extremity Start: 12/14/24 07:39 Freq: Status: Active Protocol: Document 01/20/25 07:31 AKIN (Rec: 01/20/25 08:43 AKIN [id number]) Out-Patient Physical Therapy Visit Information Visit Information Visit Type Progress Note Visit Start Time 07:30 Visit Stop Time 08:10 Visit Number 6 Number of GREASE BUFFER Visits 0 Progress Note Due 01/13/25 Precautions Precautions L anterior hip precautions OP-PT Subjective Patient Comments Patient Comments Patient reports his GROC is 75%. He noted improvement with pain levels, ambulation, stair negotiation, hip ROM. He reports the remaining 20-30% is made up of returning to a tough mudder race. Hip Goniometric Range of Motion Hip Measured in Degrees left Testing Position Supine Flexion w/Knee 120 Flexed Abduction 45 Internal Rotation 15 External Rotation 15 Comments Flexion: 110 active Cardio Equipment Bicycle (Upright) Duration (Minutes) 6 Resistance level 5 Therapeutic Exercises Sidelying Exercises Sidelying hip abduction Side left Resistance 0 Reps/Minutes 3x10 Standing Exercises SLDL Side left Equipment Used 10# Reps/Minutes 3x10 Comments cues for posterior weight shift Standing marches Resistance 5# Reps/Minutes 3x10 Comments Cues for height Hip abduction Reps/Minutes 3x10 Comments Cues for avoiding hip flexion Lateral tap downs Equipment Used 6 step Reps/Minutes 3x10 Comments Cues for controlled eccentric Standing hip flexion Resistance 2# Reps/Minutes 3x10 standing counter exercises Standing Exercise heel raises, L hip marching to 90, mini squats, hip abd Name activation Side bilateral Reps/Minutes 2 x 10 Physical Therapy Assessment Goals Three Impairment lack of HEP Short Term Goal (STG patient demonstrates compliance with HEP ) Met STG Duration 6 weeks Two Impairment pain level elevated Short Term Goal (STG patient reports improved pain at least 50% ) Met STG Duration 6 weeks One Impairment impaired strength Short Term Goal ([facility] patient with L hip strength 4/5 all directions ) In progress (01/20/2025) STG Duration 6 weeks Assessment Summary Assessment Patient presenting to PT after 5 PT visits s/p 6 weeks L anterior approach [place]. Patient has made improvements with pain levels and general mobility but has not yet returned to prior level of function. Objective investigation revealed improvement with, but still some deficits with hip ROM (see above: flexion, abduction, ER, IR PROM). Patient will continue to benefit from PT to address remaining deficits and continue with plan of care. Physical Therapy Plan Frequency and Duration Frequency of 2x/Week Treatment Plan of Care Start 12/14/24 Date Plan of Care End 03/14/25 Date Next Visit Focus/Plan Next Note Type Treatment Note Next Visit Plan Update HEP, continue with hip strengthening progressions.
--- NOTE | 2025-01-25 08:18 | PT.OTN ---
Current Diagnoses Unilateral primary osteoarthritis, left hip (01/25/25) Presence of unspecified artificial hip joint (01/25/25) Physical Therapy Treatment Note PT OP: Lower Back/Lower Extremity Start: 12/14/24 07:39 Freq: Status: Active Protocol: Document 01/25/25 07:23 AKIN (Rec: 01/25/25 08:18 AKIN [id number]) Out-Patient Physical Therapy Visit Information Visit Information Visit Type Progress Note Visit Start Time 07:30 Visit Stop Time 08:10 Visit Number 7 Number of CASH APPLICATIONS SPECIALIST Visits 0 Progress Note Due 02/24/25 Precautions Precautions L anterior hip precautions OP-PT Subjective Patient Comments Patient Comments Patient reports his hip has been a bit sore but overall is doing well. Cardio Equipment Bicycle (Upright) Duration (Minutes) 8 Resistance level 5 Therapeutic Exercises Sidelying Exercises Sidelying hip abduction Side left Resistance 0 Reps/Minutes 3x10 Standing Exercises SLDL Side left Equipment Used 10# Reps/Minutes 3x10 Comments cues for posterior weight shift Standing marches Resistance 0 Reps/Minutes 3x10 Comments Cues for height Lateral tap downs Equipment Used 6 step Reps/Minutes 3x12 Comments Cues for controlled eccentric Standing hip flexion Reps/Minutes 3x10 Squat to chair Reps/Minutes 3x10 KYLIE wedge Standing Exercise gastroc soleus stretch Name Equipment Used KYLIE wedge Reps/Minutes 1 min each Physical Therapy Assessment Goals Three Impairment lack of HEP Short Term Goal (STG patient demonstrates compliance with HEP ) Met STG Duration 6 weeks Two Impairment pain level elevated Short Term Goal (STG patient reports improved pain at least 50% ) Met STG Duration 6 weeks One Impairment impaired strength Short Term Goal (STG patient with L hip strength 4/5 all directions ) In progress (01/20/2025) STG Duration 6 weeks Assessment Summary Assessment Treatment focused on continued gentle hip strengthening . Patient tolerated treatment well with no large increases in pain levels and muscular fatigue near end of sets. Plan next session to follow up on home exercises and continue with plan of care. Physical Therapy Plan Frequency and Duration Frequency of 2x/Week Treatment Plan of Care Start 12/14/24 Date Plan of Care End 03/14/25 Date Next Visit Focus/Plan Next Note Type Treatment Note Next Visit Plan Update HEP, continue with hip strengthening progressions.
--- NOTE | 2025-01-27 09:46 | PT.OTN ---
Current Diagnoses Unilateral primary osteoarthritis, left hip (01/27/25) Presence of unspecified artificial hip joint (01/27/25) Physical Therapy Treatment Note PT OP: Lower Back/Lower Extremity Start: 12/14/24 07:39 Freq: Status: Active Protocol: Document 01/27/25 07:28 AKIN (Rec: 01/27/25 09:45 AKIN [id number]) Out-Patient Physical Therapy Visit Information Visit Information Visit Type Treatment Note Visit Start Time 09:05 Visit Stop Time 09:45 Visit Number 8 Number of POUNCER MACHINE Visits 0 Progress Note Due 02/24/25 Precautions Precautions L anterior hip precautions. OP-PT Subjective Patient Comments Patient Comments Patient reports his hip has been feeling better. He has less soreness. Cardio Equipment Bicycle (Upright) Duration (Minutes) 6 Resistance level 7 Therapeutic Exercises Standing Exercises SLDL Side left Equipment Used 10# Reps/Minutes 3x10 Comments cues for posterior weight shift Standing marches Resistance 0 Reps/Minutes 2x10 Comments Cues for height Lateral tap downs Equipment Used 6 step Reps/Minutes 3x12 Comments Cues for controlled eccentric Standing hip flexion Reps/Minutes 3x10 Squat to chair Reps/Minutes 3x10 Physical Therapy Assessment Goals Three Impairment lack of HEP Short Term Goal (STG patient demonstrates compliance with HEP ) Met STG Duration 6 weeks Two Impairment pain level elevated Short Term Goal (STG patient reports improved pain at least 50% ) Met STG Duration 6 weeks One Impairment impaired strength Short Term Goal ([facility] patient with L hip strength 4/5 all directions ) In progress (01/20/2025) STG Duration 6 weeks Assessment Summary Assessment Treatment focused on gentle hip strengthening. Patient tolerated treatment well with no lasting increases in pain levels. He noted some sharp pain with hip flexion exercises today so volume with these was reduced and the symptoms subsided after rest. Plan next session to follow up on these symptoms and continue with plan of care. Physical Therapy Plan Frequency and Duration Frequency of 2x/Week Treatment Plan of Care Start 12/14/24 Date Plan of Care End 03/14/25 Date Next Visit Focus/Plan Next Note Type Treatment Note Next Visit Plan Update HEP, continue with hip strengthening progressions.
--- NOTE | 2025-02-01 08:18 | PT.OTN ---
Current Diagnoses Unilateral primary osteoarthritis, left hip (02/01/25) Presence of unspecified artificial hip joint (02/01/25) Physical Therapy Treatment Note PT OP: Lower Back/Lower Extremity Start: 12/14/24 07:39 Freq: Status: Active Protocol: Document 02/01/25 07:20 AKIN (Rec: 02/01/25 08:18 AKIN [id number]) Out-Patient Physical Therapy Visit Information Visit Information Visit Type Treatment Note Visit Start Time 07:30 Visit Stop Time 08:10 Visit Number 9 Number of INVESTMENT BANKER Visits 0 Progress Note Due 02/24/25 Precautions Precautions L anterior hip precautions. OP-PT Subjective Patient Comments Patient Comments Patient reports he was sore after last session. He has continued to have some pain with hip flexion. He reports his current pain level is a 2/10. Cardio Equipment Bicycle (Upright) Duration (Minutes) 8 Resistance level 6 Therapeutic Exercises Standing Exercises Lateral band walks Equipment Used level 1 Reps/Minutes 5x10 steps each direction SLDL Side left Equipment Used 10# Reps/Minutes 3x12 Comments cues for posterior weight shift Hip abduction Reps/Minutes 3x10 Comments Pain free ranges only Lateral tap downs Equipment Used 6 step Reps/Minutes 4x12 Comments Cues for controlled eccentric Squat to chair Resistance BW Reps/Minutes 3x12 Physical Therapy Assessment Goals Three Impairment lack of HEP Short Term Goal (STG patient demonstrates compliance with HEP ) Met STG Duration 6 weeks Two Impairment pain level elevated Short Term Goal (STG patient reports improved pain at least 50% ) Met STG Duration 6 weeks One Impairment impaired strength Short Term Goal ([facility] patient with L hip strength 4/5 all directions ) In progress (01/20/2025) STG Duration 6 weeks Assessment Summary Assessment Treatment focused on hip strengthening in pain-free ranges. Patient tolerated treatment well with no increases in pain levels. Hip flexion exercises were held today due to excess soreness in that range after last session. Plan next session to follow up on lasting response to today's session and continue with plan of care. Physical Therapy Plan Frequency and Duration Frequency of 2x/Week Treatment Plan of Care Start 12/14/24 Date Plan of Care End 03/14/25 Date Next Visit Focus/Plan Next Note Type Treatment Note Next Visit Plan Update HEP, continue with hip strengthening progressions.
--- NOTE | 2025-02-03 09:50 | PT.OTN ---
Current Diagnoses Unilateral primary osteoarthritis, left hip (02/03/25) Presence of unspecified artificial hip joint (02/03/25) Physical Therapy Treatment Note PT OP: Lower Back/Lower Extremity Start: 12/14/24 07:39 Freq: Status: Active Protocol: Document 02/03/25 07:28 AKIN (Rec: 02/03/25 09:49 JLuigi [id number]) Out-Patient Physical Therapy Visit Information Visit Information Visit Type Treatment Note Visit Start Time 07:30 Visit Stop Time 08:10 Visit Number 10 Number of STAFF ENGINEER Visits 0 Progress Note Due 02/24/25 Precautions Precautions L anterior hip precautions. OP-PT Subjective Patient Comments Patient Comments Patient reports his back has been bothering more recently. He reports he was feeling good after last session. His pain level this morning is 2-4/10. Cardio Equipment Bicycle (Upright) Duration (Minutes) 8 Resistance level 6 Therapeutic Exercises Standing Exercises Lateral band walks Equipment Used level 2 Reps/Minutes 5x10 steps each direction SLDL Side left Reps/Minutes 3x12 Comments cues for posterior weight shift Standing marches Resistance 0 Reps/Minutes 2x10 Comments Range limited such that pain stays below 4/10 Hip abduction Reps/Minutes 3x10 Comments Pain free ranges only Lateral tap downs Equipment Used 6 step Reps/Minutes 4x12 Comments Cues for controlled eccentric Standing hip flexion Reps/Minutes 3x10 Comments SLR - limit range to keep pain levels <4/10 Squat to chair Resistance BW Reps/Minutes 3x12 Physical Therapy Assessment Goals Three Impairment lack of HEP Short Term Goal (STG patient demonstrates compliance with HEP ) Met STG Duration 6 weeks Two Impairment pain level elevated Short Term Goal (STG patient reports improved pain at least 50% ) Met STG Duration 6 weeks One Impairment impaired strength Short Term Goal ([facility] patient with L hip strength 4/5 all directions ) In progress (01/20/2025) STG Duration 6 weeks Assessment Summary Assessment Treatment focused on continue hip strengthening in pain free ranges. Hip flexion exercises were resumed today which patient tolerated well with no lasting increases in pain. He was cues to limit range such that pain is less than a 4/10. Plan next session to follow up on hip flexor pain and continue with gentle strengthening/ AROM if he responded positively. Otherwise continue to current exercise program and progress loads as tolerated. Physical Therapy Plan Frequency and Duration Frequency of 2x/Week Treatment Plan of Care Start 12/14/24 Date Plan of Care End 03/14/25 Date Next Visit Focus/Plan Next Note Type Treatment Note Next Visit Plan Continue with plan of care focused on hip strengthening as tolerated. Continue with hip flexor exercises, monitoring pain levels. Limit ranges with hip flexor exercises such that pain levels remain below a 4/10.
--- NOTE | 2025-02-08 10:11 | PT.OTN ---
Current Diagnoses Unilateral primary osteoarthritis, left hip (02/08/25) Presence of unspecified artificial hip joint (02/08/25) Physical Therapy Treatment Note PT OP: Lower Back/Lower Extremity Start: 12/14/24 07:39 Freq: Status: Active Protocol: Document 02/08/25 07:30 AB (Rec: 02/08/25 08:20 AB [id number]) Out-Patient Physical Therapy Visit Information Visit Information Visit Type Treatment Note Visit Note [id number] Visit Start Time 07:32 Visit Stop Time 08:17 Visit Number 11 Number of RESTAURANT CASHIER Visits 1 Progress Note Due 02/24/25 Precautions Precautions L anterior hip precautions. OP-PT Subjective Patient Comments Patient Comments Patient rates pain 0/10 start of session. SLS L LE 30+ seconds with inc ipsilateral trunk sidebend with head turns. Therapeutic Exercises Supine Exercises Modified Hardy stretch Supine Exercise Name HEP Side left Reps/Minutes 60 sec with AROM knee flexion X 10 Comments verbal cues fig 4 stretch Supine Exercise Name HEP Reps/Minutes 60 sec X 2 each LE Comments Verbal cues abd tactile cues Sidelying Exercises clamshell Sidelying Exercise HEP Name Reps/Minutes X 15 Comments back to wall VC to keep foot on wall Sidelying hip abduction Sidelying Exercise back to wall HEP Name Side left Reps/Minutes X 15 Comments back to wall VC to keep foot on wall Standing Exercises glute med isometric Standing Exercise HEP Name Reps/Minutes one minute each side Comments verbal and visual cues Squat to chair Reps/Minutes X2 and X 8 Comments Pt ed use self tactile cues for hip hinge KYLIE wedge Standing Exercise gastroc soleus stretch Name Equipment Used KYLIE wedge Reps/Minutes 1 min each X 2 X 10 Comments Pt ed rationale of 60 sec hold Manual Therapy Treatment Consent Patient gave verbal Yes consent for manual treatment Soft Tissue Mobilization L glute/piriformis Mobilization Type Cross-Friction,Oscillations Intensity/Depth Moderate Body Position Sidelying Comments Patient reports decreasing sciatic pain during STM Physical Therapy Assessment Goals Three Impairment lack of HEP Short Term Goal (STG patient demonstrates compliance with HEP ) Met STG Duration 6 weeks Two Impairment pain level elevated Short Term Goal (STG patient reports improved pain at least 50% ) Met STG Duration 6 weeks One Impairment impaired strength Short Term Goal ([facility] patient with L hip strength 4/5 all directions ) In progress (01/20/2025) [facility] Duration 6 weeks Assessment Summary Assessment Patient reports having no pain end of session, Patient reports knee crackling with squats Physical Therapy Plan Frequency and Duration Frequency of 2x/Week Treatment Plan of Care Start 12/14/24 Date Plan of Care End 03/14/25 Date Therapeutic Interventions Therapeutic Balance Training,Gait Training,Home Exercise Program, Interventions Joint Mobilizations,Manual Therapy,Neuromuscular Re- education,Patient/Caregiver Education,Self-Care/Home Management,Soft Tissue Mobilization,Therapeutic Activities,Therapeutic Exercises Modalities Cold Pack/Ice Massage,Electric Stimulation,Hot Packs, Ultrasound Next Visit Focus/Plan Next Note Type Treatment Note Next Visit Plan Continue with plan of care focused on hip strengthening as tolerated. Continue with hip flexor exercises, monitoring pain levels. Limit ranges with hip flexor exercises such that pain levels remain below a 4/10.
--- NOTE | 2025-02-08 10:12 | PT.OTN ---
Current Diagnoses Unilateral primary osteoarthritis, left hip (02/08/25) Presence of unspecified artificial hip joint (02/08/25) Physical Therapy Treatment Note PT OP: Lower Back/Lower Extremity Start: 12/14/24 07:39 Freq: Status: Active Protocol: Document 02/08/25 07:30 AB (Rec: 02/08/25 08:20 AB [id number]) Out-Patient Physical Therapy Visit Information Visit Information Visit Type Treatment Note Visit Note [id number] Visit Start Time 07:32 Visit Stop Time 08:17 Visit Number 11 Number of GAS SYSTEMS WORKER Visits 1 Progress Note Due 02/24/25 Precautions Precautions L anterior hip precautions. OP-PT Subjective Patient Comments Patient Comments Patient rates pain 0/10 start of session. SLS L LE 30+ seconds with inc ipsilateral trunk sidebend with head turns. Therapeutic Exercises Supine Exercises Modified Hardy stretch Supine Exercise Name HEP Side left Reps/Minutes 60 sec with AROM knee flexion X 10 Comments verbal cues fig 4 stretch Supine Exercise Name HEP Reps/Minutes 60 sec X 2 each LE Comments Verbal cues abd tactile cues Sidelying Exercises clamshell Sidelying Exercise HEP Name Reps/Minutes X 15 Comments back to wall VC to keep foot on wall Sidelying hip abduction Sidelying Exercise back to wall HEP Name Side left Reps/Minutes X 15 Comments back to wall VC to keep foot on wall Standing Exercises glute med isometric Standing Exercise HEP Name Reps/Minutes one minute each side Comments verbal and visual cues Squat to chair Reps/Minutes X2 and X 8 Comments Pt ed use self tactile cues for hip hinge KYLIE wedge Standing Exercise gastroc soleus stretch Name Equipment Used KYLIE wedge Reps/Minutes 1 min each X 2 X 10 Comments Pt ed rationale of 60 sec hold Manual Therapy Treatment Consent Patient gave verbal Yes consent for manual treatment Soft Tissue Mobilization L glute/piriformis Mobilization Type Cross-Friction,Oscillations Intensity/Depth Moderate Body Position Sidelying Comments Patient reports decreasing sciatic pain during STM Physical Therapy Assessment Goals Three Impairment lack of HEP Short Term Goal (STG patient demonstrates compliance with HEP ) Met STG Duration 6 weeks Two Impairment pain level elevated Short Term Goal (STG patient reports improved pain at least 50% ) Met STG Duration 6 weeks One Impairment impaired strength Short Term Goal ([facility] patient with L hip strength 4/5 all directions ) In progress (01/20/2025) [facility] Duration 6 weeks Assessment Summary Assessment Patient reports having no pain end of session, Patient reports knee crackling with squats Physical Therapy Plan Frequency and Duration Frequency of 2x/Week Treatment Plan of Care Start 12/14/24 Date Plan of Care End 03/14/25 Date Therapeutic Interventions Therapeutic Balance Training,Gait Training,Home Exercise Program, Interventions Joint Mobilizations,Manual Therapy,Neuromuscular Re- education,Patient/Caregiver Education,Self-Care/Home Management,Soft Tissue Mobilization,Therapeutic Activities,Therapeutic Exercises Modalities Cold Pack/Ice Massage,Electric Stimulation,Hot Packs, Ultrasound Next Visit Focus/Plan Next Note Type Treatment Note Next Visit Plan Continue with plan of care focused on hip strengthening as tolerated. Continue with hip flexor exercises, monitoring pain levels. Limit ranges with hip flexor exercises such that pain levels remain below a 4/10.
--- NOTE | 2025-02-10 12:34 | PT.OTN ---
Current Diagnoses Unilateral primary osteoarthritis, left hip (02/10/25) Presence of unspecified artificial hip joint (02/10/25) Physical Therapy Treatment Note PT OP: Lower Back/Lower Extremity Start: 12/14/24 07:39 Freq: Status: Active Protocol: Document 02/10/25 09:00 PD (Rec: 02/10/25 09:44 PD [id number]) Out-Patient Physical Therapy Visit Information Visit Information Visit Type Treatment Note Visit Note TATY Rodriguez led tx session with direct supervision from CYNDY Veras and patient permission. Visit Start Time 09:00 Visit Stop Time 09:45 Visit Number 12 Number of SAWYER HELPER Visits 2 Progress Note Due 02/24/25 Precautions Precautions L anterior hip precautions. Pt report cleared of precautions by MD on as of 02/10/25. OP-PT Subjective Patient Comments Patient Comments Pt reports he felt some pain in L hip/leg yesterday. Could be from HO of radiculopathy or torn meniscus, not just hip. This morning feels pain at about 5-6, getting into and out of car was a challenge but doesn't think it pertains to actual surgery. Cardio Equipment Recumbent Elliptical (NuStep) Duration (Minutes) 8 Resistance 5 Seat Position 13 Other Cues for easy motions to get joint mobility in pain free range Therapeutic Exercises Standing Exercises Lateral band walks Standing Exercise For HEP, HO declined Name Side bilateral Resistance L3 band at ankles Equipment Used level 3 Reps/Minutes 5x10 steps each direction Comments Cues for upright posture, chin tucks, scapular retraction Lateral tap downs Side left Resistance BW Equipment Used 6 step Reps/Minutes 3 x 10 Comments Cues for controlled eccentric, posture, slow down but pain free Squat to chair Standing Exercise Reviewed for HEP, move within range of control and Name stability, HO declined Side bilateral Reps/Minutes 3 x 10 Comments Cues for hip hinge, stay in range of control and even balance, no pain KYLIE wedge Standing Exercise gastroc soleus stretch - for HEP, HO declined Name Equipment Used KYLIE wedge Reps/Minutes 1 min each X 2 X 10 Comments Pt ed rationale of 60 sec hold, cues no bouncing standing counter exercises Standing Exercise Hip adductor, HS, HF strecthes - for HEP, HO declined Name Side bilateral Resistance BW Equipment Used rail Reps/Minutes 2 x 15-60 holds, cues no bouncing Comments Cues for pain free stretch, no bouncing, steady hold for up to 60 Physical Therapy Assessment Goals Three Impairment lack of HEP Short Term Goal (STG patient demonstrates compliance with HEP ) Met STG Duration 6 weeks Two Impairment pain level elevated Short Term Goal (STG patient reports improved pain at least 50% ) Met STG Duration 6 weeks One Impairment impaired strength Short Term Goal (STG patient with L hip strength 4/5 all directions ) In progress (01/20/2025) STG Duration 6 weeks Assessment Summary Assessment Pt reports he feels good at end of session, feels he got a workout. Pain is reduced from when he came in, pain at 0-1/10 when leaving session. Focused skilled therapy on exercises that increase ROM and strength within pain free zone, stretching with cues for holding and not bouncing in range of pain free stretch. Cues for upright posture, chin tucks during LE exercises for overall improved body mechanics/spinal health. HO provided for posture, declined HO for HEP. Physical Therapy Plan Frequency and Duration Frequency of 2x/Week Treatment Plan of Care Start 12/14/24 Date Plan of Care End 03/14/25 Date Next Visit Focus/Plan Next Note Type Treatment Note Next Visit Plan Assess HEP, response to 02/10 session. Progress exercises for L hip strength, mobility, endurance focusing on proper form and techniques, posture and progressing with pain free range.
--- NOTE | 2025-02-15 08:16 | PT.OTN ---
Current Diagnoses Unilateral primary osteoarthritis, left hip (02/15/25) Presence of unspecified artificial hip joint (02/15/25) Physical Therapy Treatment Note PT OP: Lower Back/Lower Extremity Start: 12/14/24 07:39 Freq: Status: Active Protocol: Document 02/15/25 07:29 AKIN (Rec: 02/15/25 08:13 AKIN [id number]) Out-Patient Physical Therapy Visit Information Visit Information Visit Type Treatment Note Visit Start Time 07:30 Visit Stop Time 08:10 Visit Number 13 Number of TOOL POLISHING MACHINE OPERATOR Visits 0 Progress Note Due 02/24/25 Precautions Precautions L anterior hip precautions. Pt report cleared of precautions by MD on as of 02/10/25. OP-PT Subjective Patient Comments Patient Comments Patient reports he has been doing his home exercises. He resumed his drive to work yesterday and reports his hip felt good. Cardio Equipment Bicycle (Upright) Duration (Minutes) 8 Resistance level 7 Therapeutic Exercises Supine Exercises Modified Hardy stretch Supine Exercise Name HEP Side left Reps/Minutes 60 sec with AROM knee flexion X 10 Comments verbal cues fig 4 stretch Supine Exercise Name HEP Reps/Minutes 60 sec X 2 each LE Comments Verbal cues abd tactile cues Standing Exercises SLDL Side left Reps/Minutes 3x12 Comments cues for posterior weight shift Standing marches Resistance 0 Reps/Minutes x10 Comments Range limited such that pain stays below 4/10 Hip abduction Reps/Minutes x10 Comments Pain free ranges only Lateral tap downs Side left Resistance BW Equipment Used 6 step Reps/Minutes 3 x 10 Comments Cues for controlled eccentric, posture, slow down but pain free Standing hip flexion Reps/Minutes x10 Comments SLR - limit range to keep pain levels <4/10 Squat to chair Standing Exercise Reviewed for HEP, move within range of control and Name stability, HO declined Side bilateral Reps/Minutes 3 x 10 Comments Cues for hip hinge, stay in range of control and even balance, no pain Physical Therapy Assessment Goals Three Impairment lack of HEP Short Term Goal (STG patient demonstrates compliance with HEP ) Met STG Duration 6 weeks Two Impairment pain level elevated Short Term Goal (STG patient reports improved pain at least 50% ) Met STG Duration 6 weeks One Impairment impaired strength Short Term Goal ([facility] patient with L hip strength 4/5 all directions ) In progress (01/20/2025) STG Duration 6 weeks Assessment Summary Assessment Treatment focused on continued gentle hip ROM and strengthening. Patient tolerated treatment well with no lasting increases in pain levels. Plan next session to follow up on response to today's session and continue with plan of care. Physical Therapy Plan Frequency and Duration Frequency of 2x/Week Treatment Plan of Care Start 12/14/24 Date Plan of Care End 03/14/25 Date Next Visit Focus/Plan Next Note Type Treatment Note Next Visit Plan Progress exercises for L hip strength, mobility, endurance focusing on proper form and techniques, posture and progressing with pain free range.
--- NOTE | 2025-02-17 08:20 | PT.OTN ---
Current Diagnoses Unilateral primary osteoarthritis, left hip (02/17/25) Presence of unspecified artificial hip joint (02/17/25) Physical Therapy Treatment Note PT OP: Lower Back/Lower Extremity Start: 12/14/24 07:39 Freq: Status: Active Protocol: Document 02/17/25 07:24 AKIN (Rec: 02/17/25 08:20 AKIN [id number]) Out-Patient Physical Therapy Visit Information Visit Information Visit Type Treatment Note Visit Start Time 07:34 Visit Stop Time 08:14 Visit Number 14 Number of RN CLINICAL COORDINATOR Visits 0 Progress Note Due 02/24/25 Precautions Precautions L anterior hip precautions. Pt report cleared of precautions by MD on as of 02/10/25. OP-PT Subjective Patient Comments Patient Comments Patient reports his hip has been feeling good. He has not had much pain recently. Cardio Equipment Bicycle (Upright) Duration (Minutes) 8 Resistance level 7 Therapeutic Exercises Supine Exercises Modified Hardy stretch Supine Exercise Name HEP Side left Reps/Minutes 60 sec with AROM knee flexion X 10 Comments verbal cues fig 4 stretch Supine Exercise Name HEP Reps/Minutes 60 sec X 2 each LE Comments Verbal cues abd tactile cues Standing Exercises Lateral band walks Standing Exercise For HEP, HO declined Name Side bilateral Resistance L3 band at ankles Equipment Used level 3 Reps/Minutes 5x10 steps each direction Comments Cues for upright posture, chin tucks, scapular retraction SLDL Side left Resistance 10# Reps/Minutes 3x12 Comments cues for posterior weight shift Standing marches Reps/Minutes 2x10 Comments Partial ROM in pain-free ranges Hip abduction Reps/Minutes 2x10 Comments Pain free ranges only Lateral tap downs Side left Resistance BW Equipment Used 6 step Reps/Minutes 3 x 10 Comments Cues for controlled eccentric, posture, slow down but pain free Squat to chair Standing Exercise Reviewed for HEP, move within range of control and Name stability, HO declined Side bilateral Reps/Minutes 3 x 10 Comments Cues for hip hinge, stay in range of control and even balance, no pain Physical Therapy Assessment Goals Three Impairment lack of HEP Short Term Goal (STG patient demonstrates compliance with HEP ) Met STG Duration 6 weeks Two Impairment pain level elevated Short Term Goal (STG patient reports improved pain at least 50% ) Met STG Duration 6 weeks One Impairment impaired strength Short Term Goal (STG patient with L hip strength 4/5 all directions ) In progress (01/20/2025) STG Duration 6 weeks Assessment Summary Assessment Treatment focused on continued hip ROM and strengthening. Patient tolerated treatment better than previous sessions with no increased pain with standing marches indicating progress. Plan next session to follow up on symptoms and progress loads with strengthening exercises. Physical Therapy Plan Frequency and Duration Frequency of 2x/Week Treatment Plan of Care Start 12/14/24 Date Plan of Care End 03/14/25 Date Next Visit Focus/Plan Next Note Type Treatment Note Next Visit Plan Progress exercises for L hip strength, mobility, endurance focusing on proper form and techniques, posture and progressing with pain free range.
--- NOTE | 2025-02-22 08:23 | PT.OTN ---
Current Diagnoses Unilateral primary osteoarthritis, left hip (02/22/25) Presence of unspecified artificial hip joint (02/22/25) Physical Therapy Treatment Note PT OP: Lower Back/Lower Extremity Start: 12/14/24 07:39 Freq: Status: Active Protocol: Document 02/22/25 07:23 AKIN (Rec: 02/22/25 08:23 AKIN [id number]) Out-Patient Physical Therapy Visit Information Visit Information Visit Type Treatment Note Visit Start Time 07:33 Visit Stop Time 08:13 Visit Number 15 Number of MOTEL MAID Visits 0 Progress Note Due 02/24/25 Precautions Precautions L anterior hip precautions. Pt report cleared of precautions by MD on as of 02/10/25. OP-PT Subjective Patient Comments Patient Comments Patient reports his hip has been feeling good. He reports he had an MRI that revealed a bucket handle tear in his L knee. Cardio Equipment Bicycle (Upright) Duration (Minutes) 8 Resistance level 6 Therapeutic Exercises Supine Exercises Modified Hardy stretch Supine Exercise Name HEP Side left Reps/Minutes 60 sec with AROM knee flexion X 10 Comments verbal cues fig 4 stretch Supine Exercise Name HEP Reps/Minutes 60 sec X 2 each LE Comments Verbal cues abd tactile cues Standing Exercises Split squats Resistance 10# Reps/Minutes 2x10 SLDL Side left Resistance 10# Reps/Minutes 2x12 Comments cues for posterior weight shift Standing marches Reps/Minutes 2x10 Comments Partial ROM in pain-free ranges Lateral tap downs Side left Resistance BW Equipment Used 6 step Reps/Minutes 3 x 10 Comments Cues for controlled eccentric, posture, slow down but pain free Standing hip flexion Reps/Minutes x10 Comments SLR - limit range to keep pain levels <4/10 Squat to chair Standing Exercise Reviewed for HEP, move within range of control and Name stability, HO declined Side bilateral Reps/Minutes 3 x 10 Comments Cues for hip hinge, stay in range of control and even balance, no pain Physical Therapy Assessment Goals Three Impairment lack of HEP Short Term Goal (STG patient demonstrates compliance with HEP ) Met STG Duration 6 weeks Two Impairment pain level elevated Short Term Goal (STG patient reports improved pain at least 50% ) Met STG Duration 6 weeks One Impairment impaired strength Short Term Goal ([facility] patient with L hip strength 4/5 all directions ) In progress (01/20/2025) STG Duration 6 weeks Assessment Summary Assessment Treatment focused on continued hip strengthening. Patient tolerated treatment well with no increases in pain levels. Plan next session to discuss plan of care moving forward and discharge pending continued progress and patient confidence continuing exercises independently. Physical Therapy Plan Frequency and Duration Frequency of 2x/Week Treatment Plan of Care Start 12/14/24 Date Plan of Care End 03/14/25 Date Next Visit Focus/Plan Next Note Type Progress Note Next Visit Plan Complete progress note and consider discharge pending continued improvements.
--- NOTE | 2025-04-06 14:14 | PT.OPDS ---
Current Diagnoses Unilateral primary osteoarthritis, left hip (02/22/25) Presence of unspecified artificial hip joint (02/22/25) Visit Care Team Role Provider Type Seng Jones MD Family Provider Physician Primary Care Provider Specialty: Family Practice Obstetrics Address: [facility] [place], [address] Email: [email or web address] Dahlia Pop PA-C Attending Provider Advanced Ruffling Machine Operator Referring Provider Specialty: Orthopedics Orthopedic Surgery Address: [address] [place] [address], [id number] Email: [email or web address] Visit Number Visit Number 15 Discharge Summary PT OP: Lower Back/Lower Extremity Start: 12/14/24 07:39 Freq: Status: Active Protocol: Document 04/06/25 14:12 AKIN (Rec: 04/06/25 14:14 AKIN [id number]) Out-Patient Physical Therapy Visit Information Visit Information Visit Type Discharge Summary Physical Therapy Assessment Assessment Summary Assessment Patient cancelled his last PT appointment and will be discharged due to lack of follow up. Please reach out to PT department with any questions.
== END 2025-04-11 10:09 | disposition home or self-care (01) ==
LOC: PHYS 07:30
PROVIDERS: Family Provider Family Medicine; PCP Family Medicine; Referring Provider Physician Assistant Surgical; Visit Provider Physician Assistant Surgical
DX: M16.12 Unilateral primary osteoarthritis, left hip (principal); Z96.649 Presence of unspecified artificial hip joint
CPT/HCPCS: 97110; 97112; 97140; 97161; 97530

== ENCOUNTER → 2025-04-05 16:06 | Outpatient (CLI) | payer OTHER, SELFPAY ==
[2025-04-05 17:00] LABS: Add Manual Diff / Slide Review NO; Hematocrit 41.9 % (41-53); Hemoglobin 14.3 g/dL (13.5-17.5); Lymphocytes Absolute Auto 2600 /uL (1100-4500); Mean Corpuscular HGB Conc 34.2 % (30-36); Mean Corpuscular Hemoglobin 30.2 PG (26-34); Mean Corpuscular Volume 88.1 fL (80-100); Platelet Count 254 X10^3/uL (150-400)
[2025-04-05 17:09] LABS: Hemoglobin A1C% w Est Avg Glu 5.8 % (4.0-6.0)
[2025-04-05 17:50] LABS: Albumin 4.6 g/dL (3.5-5.0); Blood Urea Nitrogen 20 mg/dL (9-20); Calcium 9.6 mg/dL (8.4-10.2); Carbon Dioxide 28 mmol/L (22-32); Chloride 105 mmol/L (98-107); Estimated Glomerular Filt Rate > 60 mL/min (>60); Glucose 89 mg/dL (70-99); HEMOLYSIS < 15 (0-50); Potassium 4.7 mmol/L (3.4-5.1); Sodium 141 mmol/L (137-145)
[2025-04-05 17:57] LABS: Prealbumin 30.7 mg/dL (17.6-36.0)
== END ==
PROVIDERS: Family Provider Family Medicine; PCP Family Medicine; Referring Provider Orthopaedic Surgery; Visit Provider Orthopaedic Surgery
DX: Z01.818 Encounter for other preprocedural examination (principal)
CPT/HCPCS: 36415; 80048; 82040; 83036; 84134; 85025

== ENCOUNTER 2025-04-11 06:32 | Day surgery (SDC) | payer OTHER, SELFPAY ==
[2025-04-06 14:14] VITALS: BMI 35.5
[2025-04-11] MEDS: LACTATED RINGERS 1,000 ML 42 ML IV ×2 (06:55→08:46)
--- NOTE | 2025-04-11 06:59 | PM.PREOP ---
Pre-operative Note Interval Note History & Physical reviewed/Exam performed by Physician: Yes Changes to H&P: No
[2025-04-11] MEDS: FAMOTIDINE 20 MG/2 ML VIAL IV (07:00)
[2025-04-11] MEDS: ACETAMINOPHEN 325 MG TABLET 975 MG PO (07:01)
[2025-04-11] MEDS: PREGABALIN 75 MG CAPSULE PO (07:01)
[2025-04-11 07:05] VITALS: BP 134/82; PULSE 70; RESP 20; TEMP 36.2; O2SAT 100
--- NOTE | 2025-04-11 07:10 | PM.OP.1 ---
Operative Date/Time/Diagnoses Date of procedure: 04/11/25 Time of procedure: 07:45 Pre-op diagnosis: LEFT Knee Meniscal Tear Post-op diagnosis: same Procedure & Clinicians Procedure: Left knee arthroscopy, medial meniscus debridement and medial femoral condyle chondroplasty Same procedure(s) as scheduled: Yes Surgeon: Phong Pablo Assisted?: Yes Metal Bonding Crib Attendant: Carmita Lindquist Anesthesia Type: General Operative Notes Findings: Grade 3 and grade 4 chondromalacia of the medial femoral condyle, grade 2/grade 3 chondromalacia of the medial tibial plateau, grade 3 to grade 4 chondromalacia of the patellofemoral joint. Closure Type: primary Specimen(s): none sent Applied: none Estimated Blood Loss (mL): 10 Blood products transfused: none Tourniquet time (min): 44 Procedure in detail: Date of Operation: 04/11/25 Preoperative diagnosis: LEFT Knee Meniscal Tear Procedure performed: LEFT medial Meniscal Debridement, medial femoral condyle chondroplasty Postoperative diagnosis: LEFT Knee Meniscal Tear, chondromalacia of the medial compartment and patellofemoral compartment Primary Surgeon: Phong Pablo MD Secondary Surgeon: IBAN Miller Physician Metal Bonding Crib Attendant was used throughout the entirety of the case. They assisted with room set up, patient positioning, draping, retraction, reduction, fixation and closure. They were essential for the success of the case. Anesthesia: General EBL: 10 ml Tourniquet: 44 minutes @ 250 mmHg Implants: None Indication For Surgery: Patient presents to the orthopedic clinic with knee pain and mechanical symptoms. They have failed non-operative treatment and want to move forward with operative management. The risks, benefits, and alternatives were discussed. Risks include pain, bleeding, infection, damage to nearby structures and cartilage, lack of symptom relief, need for further surgery, DVT, PE, stroke, and . Written consent was obtained. Examination Under Anesthesia: ROM equal to the contralateral side. Normal Jordon & pivot shift Stable to varus and valgus stressing at 0 & 30 degrees. Stable dial at 30 & 90 degrees. No mechanical sensations Diagnostic Arthroscopy: Loose bodies: None Synovium: Mild synovitis Patella cartilage: Grade 3 and grade 4 chondromalacia Trochlear cartilage: Grade 3 and grade 4 chondromalacia Medial femoral condyle cartilage: Grade 3 and grade 4 chondromalacia Medial tibial plateau cartilage: Grade 2 and grade 3 chondromalacia Medial meniscus: Bucket-handle medial meniscus tear. Still stuck within the notch. On attempt to reduce it is remained deformed and the torn side was completely healed over. ACL: Intact PCL: Intact Lateral femoral condyle cartilage: Grade 1 chondromalacia Lateral tibial plateau cartilage: Grade 1 chondromalacia Lateral meniscus: No distinct tear however mild degeneration. Procedure in Detail: The patient was met in the pre-operative hold area. Consent was verified and operative extremity was signed. The patient then met with anesthesia and was brought back to the operating room. The patient was placed supine on the operating table. A general anesthetic and IV antibiotics were administered. A well-padded tourniquet was placed on the thigh. The lower extremity was then prepped and draped in the usual sterile fashion. A timeout was performed per protocol. All were in agreement and we proceeded. The Esmarch was used to exsanguinate the limb and the tourniquet was elevated. An 11 blade scalpel was used to make an anterolateral arthroscopic portal. The arthroscope was introduced into the knee and the anteromedial portal was created under direct visualization using needle localization. A diagnostic arthroscopy was performed with the above-stated findings. I then proceeded to debride the medial meniscus. It was deformed and would not return to its anatomic position. The torn side had completely healed over and this was likely not going to heal back in place even if was reduced and repaired. We decided to debride it which was difficult given the firmness of the meniscus. We utilized biters and a sucker shaver in order to remove the medial meniscus tear. The remaining medial meniscus was examined which was stable to include the root. There was unstable cartilage off the medial femoral condyle which was then debrided back to a stable base. The portals were closed with 3-0 nylon. Local anesthetic was placed. A sterile dressing was applied. The patient was awakened and transferred to the recovery room in stable condition. Postoperative Plan: Same day discharge Weight Bearing as tolerated Range of Motion as Tolerated ASA for DVT prophylaxis for 4 weeks Remove dressing in [address] bandaids Physical therapy to start after surgery Do not submerge wound until 4 weeks Follow up at 2 weeks for suture removal. Phong Pablo MD Complications: none Post-operative Condition: stable Disposition: PACU
--- NOTE | 2025-04-11 08:09 | SUR.OPER ---
Supine on padded OR bed, head on pillow, arms secured on padded arm boards at <90 degrees abduction, legs uncrossed, safety belt at waist, tape over blanket over lower non-operative leg. Surgeon approved of final position prior to start of procedure.
[2025-04-11 09:03] VITALS: BP 161/89; PULSE 83; RESP 12; TEMP 36.4; O2SAT 98
[2025-04-11 09:16] VITALS: BP 156/91; PULSE 76; RESP 15; TEMP 36.4; O2SAT 98
[2025-04-11 09:22] VITALS: BP 155/88; PULSE 64; RESP 15; TEMP 36.3; O2SAT 99
[2025-04-11 09:28] VITALS: TEMP 36.6
== END 2025-04-11 09:46 | disposition home or self-care (01) ==
LOC: OR 06:32
PROVIDERS: Family Provider Family Medicine; PCP Family Medicine; Referring Provider Orthopaedic Surgery; Visit Provider Orthopaedic Surgery
PROC: (CPT 29870; principal; 2025-04-11 07:45)
DX: S83.212A Bucket-handle tear of medial meniscus, current injury, left knee, initial encounter (principal); M22.42 Chondromalacia patellae, left knee; M17.12 Unilateral primary osteoarthritis, left knee; G47.33 Obstructive sleep apnea (adult) (pediatric); I12.9 Hypertensive chronic kidney disease with stage 1 through stage 4 chronic kidney disease, or unspecified chronic kidney disease; N18.30 Chronic kidney disease, stage 3 unspecified; E66.9 Obesity, unspecified; Z68.35 Body mass index [BMI] 35.0-35.9, adult
CPT/HCPCS: 29881; J0687; J1100; J2250; J2405; J2704; J3010; J3490; J7050; J7120

== ENCOUNTER → 2025-04-25 15:58 | Outpatient (CLI) | payer OTHER, SELFPAY ==
[2025-04-25 16:52] LABS: COVID-19 CEPHEID 4-PLEX PCR Negative (Negative); Influenza A - CEPHEID Flu A NEGATIVE (NEGATIVE); Influenza B - CEPHEID Flu B NEGATIVE (NEGATIVE)
== END ==
PROVIDERS: Family Provider Family Medicine; PCP Family Medicine; Referring Provider Nurse Practitioner Family; Visit Provider Nurse Practitioner Family
DX: R05.1 Acute cough (principal); J02.9 Acute pharyngitis, unspecified
CPT/HCPCS: 87070; 87637